=== PATIENT | female | born 1975 | race Caucasian/White ===

== ENCOUNTER → 2020-06-24 14:18 | Outpatient (BNVA) | payer BC, SELFPAY | PROVIDERS: Visit Provider Internal Medicine Gastroenterology | DX: Z76.89 Persons encountering health services in other specified circumstances (principal) ==

== ENCOUNTER → 2020-10-01 13:31 | Outpatient (BNVA) | payer BC, SELFPAY | PROVIDERS: PCP Internal Medicine; Visit Provider Internal Medicine Gastroenterology ==

== ENCOUNTER 2022-07-31 10:25 | Outpatient (REF) | payer BC, SELFPAY ==
[2022-07-31 11:55] LABS: MANUAL DIFF FLAG NO
[2022-07-31 12:06] LABS: Basophils Percent Auto 0.6 % (0-2); Hematocrit 39.5 % (37.0-47.0); Hemoglobin 13.4 g/dl (12.0-16.0); Imm Gran Abs Auto 0.01 X10*3/uL (0.00-0.03); Imm Gran Pct Auto 0.2 % (0.0-0.4); Lymphocytes Absolute Auto 1.4 X10*3/uL (1.2-4.9); Lymphocytes Percent Auto 26.6 % (20-40); Mean Corpuscular HGB Conc 33.9 g/dl (31.0-35.0); Mean Corpuscular Hemoglobin 29.4 pg (27.0-33.0); Mean Corpuscular Volume 86.6 fL (80.0-98.0); Mean Platelet Volume 10.1 fL (9.4-12.3); Monocytes Absolute Auto 0.5 X10*3/uL (0.1-1.2); Monocytes Percent Auto 9.3 % (2-11); Neutrophils Absolute Auto 3.4 x10*3/uL (2.0-8.3); Neutrophils Percent Auto 63.3 % (45-73); Platelet Count 287 X10*3/uL (160-400); Red Blood Count 4.56 X10*6/uL (4.20-5.50); Red Cell Distribution Width 12.3 % (11.0-16.0); White Blood Count 5.4 X10*3/uL (4.8-10.8)
[2022-07-31 12:35] LABS: Alanine Aminotransferase 13 U/L (0-31); Albumin Level 4.3 g/dL (3.5-5.0); Alkaline Phosphatase 55 U/L (39-117); Anion Gap 12 (12-20); Aspartate Amino Transferase 16 U/L (5-31); Bilirubin Total 0.6 mg/dL (0.0-1.0); Blood Urea Nitrogen 15 mg/dL (9-16); C Reactive Protein < 0.10 mg/dL (< or = 0.50); Calcium 9.4 mg/dL (8.4-10.2); Carbon Dioxide 27 mmol/L (22-29); Chloride 103 mmol/L (96-108); Estimated Glomerular Filt Rate > 60; Glucose Random 90 mg/dL (60-115); Magnesium 2.1 mg/dL (1.6-2.6); Phosphorus 4.3 mg/dL (2.7-4.5); Potassium 4.4 mmol/L (3.3-5.1); Sodium 138 mmol/L (135-145); Total Protein 6.9 g/dL (6.5-8.0)
[2022-07-31 13:04] LABS: Ferritin 19 ng/mL (10-250); Folate 17.9 ng/mL (> or = 4.0); Vitamin B12 357 pg/mL (200-900); Vitamin D 25-OH Total 50.5 ng/mL (>30)
[2022-08-01 14:23] LABS: IgA 169 mg/dL (47-310); IgG 1091 mg/dL (600-1640); IgM 102 mg/dL (50-300)
[2022-08-03 14:48] LABS: Immunoglobulin G Subclass 1 506 mg/dL (382-929); Immunoglobulin G Subclass 2 469 mg/dL (241-700); Immunoglobulin G Subclass 3 43 mg/dL (22-178); Immunoglobulin G Subclass 4 26.3 mg/dL (4-86); Immunoglobulin G Total 1117 mg/dL (600-1640)
[2022-08-04 15:43] LABS: Zinc 71 mcg/dL (60-130)
[2022-08-04 18:28] LABS: Vitamin C 1.1 mg/dL (0.3-2.7)
[2022-08-05 17:08] LABS: Alpha-Tocopherol 23.8 mg/L (5.7-19.9); Beta-Gamma Tocopherol <1.0 mg/L (<=4.3); Vitamin A 55 mcg/dL (38-98)
[2022-08-05 18:39] LABS: Vitamin K1 >2500 pg/mL (130-1500)
[2022-08-05 19:24] LABS: Vitamin B5 (Pantothenic Acid) 104 ng/mL (<275)
[2022-08-05 21:34] LABS: Nicotinamide <20 ng/mL; Vit B3 - Nicotinic Acid <20 ng/mL
[2022-08-05 22:43] LABS: Transglutaminase Ab IgG <1.0 U/mL; Transglutaminase IgA <1.0 U/mL
[2022-08-06 16:34] LABS: Vitamin B6 45.2 ng/mL (2.1-21.7)
[2022-08-07 17:03] LABS: Histamine Plasma 6.1 ng/mL (< OR = 1.8)
[2022-08-10 02:10] LABS: Vitamin B1 32 nmol/L (8-30)
== END 2022-07-31 10:26 | disposition home or self-care (01) ==
LOC: HO.LAB 10:25
PROVIDERS: Visit Provider Internal Medicine Gastroenterology
DX: R10.33 Periumbilical pain (principal); K86.89 Other specified diseases of pancreas; K90.9 Intestinal malabsorption, unspecified; G89.29 Other chronic pain; K75.81 Nonalcoholic steatohepatitis (NASH); R19.7 Diarrhea, unspecified
CPT/HCPCS: 36415; 80053; 82180; 82306; 82607; 82728; 82746; 82784; 83088; 83520; 83735; 84100; 84207; 84425; 84446; 84590; 84591; 84597; 84630; 85025; 86003; 86140; 86364

== ENCOUNTER 2023-02-05 11:19 | Outpatient (AMB) | payer BC, SELFPAY ==
--- NOTE | 2023-02-05 11:19 | A.OFFVIS_ITS ---
Intake Intake Visit Reasons: 6 month follow up Intake Note: Adriana presents as a video today. CC: A week and a half or so ago she feels like she had a flare up from her panctreatisis. She would like to talk about it today with you. Allergies loratadine [From Claritin] Allergy (Mild, Verified 02/05/23 11:19) Abdominal Pain Penicillins Allergy (Mild, Verified 02/05/23 11:19) Abdominal Pain pentazocine [From Talwin] Allergy (Mild, Verified 02/05/23 11:19) unknown HPI 6 month follow up HPI Details 47 yr old f w hx of back pain and sinus issues being seen for f/u Last seen 09/2020 RECAP: She had alternating levels of lower abdominal pain, usu on left side, has been to ED and been told she has diverticulosis waves of nausea, assoc with fatigue, energy so low, can;t get out of bed she has altered bowel habit, was going everyday now going every few days stool is oily, greasy, stinky, she has to push a lot issues with hemorrhoids, and had hemorrhoidectomy no blood in stool, stool can look dark brown this was noticed 1.5 yr ago assoc with distention, and bloating she eats healthy, keeps fit, avoids fried foods feels sx getting worse with time but last month maybe not as bad uses cannabis oil sometimes no hives she does have mental fogginess, off and on for years since post bleeding appetite is normal most of the time weight is stable, joint pains, in knees, hands, and spine--no swelling, stiffness worse in the morning she has had imaging of spine due to spinal fracture never been checked for osteoporosis still has periods no chest pain, SOB due to mold allergies, ?had covid 1 month ago although tested neg no mouth ulcers 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 HIV has been negative no bad habits, no drug or alcohol use she had EGD/colonoscopy:, polyp removed serrated type, and hemorrhoids noted, no h pylori MRI pancreas: 08/2020--normal INTERIM: reviewed labs with her, Zn low normal, RAST neg migraines little better now, having menopause, going thru hot flashes, memory problems she has issues with bloating, she does have to strain and put a lot of pressure to empty stool she does not feel incomplete after evacuation she is already efexor she is still taking PPI and creon she is still taking enzyme supplements no diarrhea EXAM: GENERAL: Relaxed, good color, breathing normally Assessment & Plan 1/ Steatorrhea with bloating and distention, ?SIBO but didn't really respond to rifaximin, elastase normal, MRe nml with neg IBD and nml pancreas. 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 ? PFSH Surgical History History of History of colonoscopy Hx of dilation and curettage Hx of endoscopy Family History Father Family history of high blood pressure History of bone cancer Hx of heat stroke Mother Family history of high blood pressure Social History Alcohol intake: current Alcohol intake frequency: a few times a month Alcohol type: wine Substance Use Type: Marijuana Assessment & Plan Assessment & Plan (1) Pancreatic insufficiency: Code(s): K86.89 - Other specified diseases of pancreas (2) Idiopathic steatorrhea: Code(s): K90.9 - Intestinal malabsorption, unspecified (3) Steatorrhea: Code(s): K90.9 - Intestinal malabsorption, unspecified (4) Abdominal bloating: Code(s): R14.0 - Abdominal distension (gaseous) Medications: New rifaximin 550 mg PO TID 2 weeks 42 tabs 0RF Coding Level of Care Code Est Pt Level 3 (27408) Diagnoses Pancreatic insufficiency K86.89 Idiopathic steatorrhea K90.9 Steatorrhea K90.9 Abdominal bloating R14.0
--- OUTSIDE RECORDS SUMMARY | 2023-02-05 11:21 | XMS_ITS ---
Author Name Cindy Lou Address [address] [place], [place] [id number] Organization [facility] Address [address] [place], [place] [id number] Care Team Providers Care Perfumer Name Role Phone Cindy Lou Unavailable [phone] PROBLEMS Type Condition ICD9-CM Code OKE27-YO Code Onset Dates Condition Status SNOMED Code Problem Migraine without aura, intractable, without status migrainosus G43.019 Active 700585102 Problem Cervicalgia M54.2 Active 57788229 Problem Migraine, unspecified, intractable, without status migrainosus G43.919 Active 490035303 ALLERGIES Substance Reaction Event Type Date Status Penicillin Unknown Drug Allergy May, Active Talwin Unknown Drug Allergy May, Active Levaquin Unknown Drug Allergy May, Active ENCOUNTERS Encounter Location Date Diagnosis [facility] [address] [id number] Jun, [facility] [address] [id number] Jun, [facility] [address] [id number] Jun, [facility] [address] [id number] May, [facility] [address] [id number] May, Migraine without aura, intractable, without status migrainosus G43.019 [facility] [address] [id number] May, [facility] [address] [id number] May, [facility] [address] [id number] Apr, Migraine without aura, intractable, without status migrainosus G43.019 and Cervicalgia M54.[address] [facility] [address] [id number] 2022 IMMUNIZATIONS No Known Immunizations SOCIAL HISTORY Never Assessed REASON FOR REFERRAL FUNCTIONAL STATUS PLAN OF CARE Activity Details VITAL SIGNS Heart Rate 64 2022-05-19 Height 70 in 2022-06-15 Height 70 in 2022-05-19 Weight 158 lbs 2022-05-19 BMI 22.67 kg/m2 2022-05-19 Blood pressure systolic 114 Blood pressure diastolic 78 2022-04 MEDICATIONS Medication Instructions Dosage Frequency Start Date End Date Duration Status Butalbital-APAP -Caffeine 50-325-40 MG Orally every 4 hrs 1 capsule as needed 4h Not-Taki ng ZOLMitriptan 2.5 MG Orally Once a day 1 tablet 24h 1 day(s) Not-Taki ng Nurtec 75 MG DISSOLVE ONE ORAL DISINTEGRATING TABLET IN MOUTH AT THE FIRST ONSET OF MIGRAINE ONCE A DAY NEEDED. MAX 1 TABLET PER 24 HOURS 30 Active Propranolol HCl ER 80 MG Orally Once a day 1 capsule 24h 90 days Active Creon 45103-02714 UNIT Orally up to 6/day as directed Active Venlafaxine HCl 75 MG Orally Once a day 1 tablet with food 24h Active SUMAtriptan 20 MG/ACT Nasally Once a day 1 spray at onset of headache in one nostril may repeat after 2 hours as needed 24h 1 day(s) Not-Taki ng PROCEDURES No Known procedures RESULTS No Results REASON FOR VISIT samples, ? abt her nurtec script, nurtec, EPA form, migraine - blurred vision , [place] - Nurtec Insurance Providers Health Insurance Type Health Plan Insurance Address Health Plan Insurance Phone Health Plan Insurance Name Health Plan Coverage Dates Member ID Patient Relationship to Subscriber Patient Address Patient Phone Patient Name Patient Date of Subscriber ID Subscriber Name Subscriber Date of Group No [facility] [address] [facility] [id number] [facility] self Zelda olsen [place] [id number]
== END 2023-02-05 12:39 | disposition home or self-care (01) ==
LOC: HO.HGI 11:19
PROVIDERS: Visit Provider Internal Medicine Gastroenterology
DX: K86.89 Other specified diseases of pancreas (principal); K90.9 Intestinal malabsorption, unspecified; R14.0 Abdominal distension (gaseous)
CPT/HCPCS: 99213

== ENCOUNTER → 2023-02-05 11:19 | Outpatient (BNVA) | payer BC, SELFPAY | PROVIDERS: Visit Provider Internal Medicine Gastroenterology ==

== ENCOUNTER 2023-08-06 11:10 | Outpatient (AMB) | payer OTHER, SELFPAY ==
--- NOTE | 2023-08-06 11:18 | MHC.OFFVIS ---
Intake Vital Signs 08/06/23 11:20 Height 5 ft 10 in Weight 162 lb BMI 23.2 BP 123/77 Blood Pressure Location Lt brachial Position Sitting Pulse 77 Intake Visit Reasons: 6 mnth folllow uo Intake Note: Patient follow up for Patient cc: Nauseas, abdominal pain with bloating, constipation on and off, max mucous and flame. Division Traffic Superintendent Required: No Accompanied by: Self / Same As Patient Allergies loratadine [From Claritin] Allergy (Mild, Verified 08/06/23 11:17) Abdominal Pain Penicillins Allergy (Mild, Verified 08/06/23 11:17) Abdominal Pain pentazocine [From Talwin] Allergy (Mild, Verified 08/06/23 11:17) unknown HPI 6 mnth folllow uo HPI Details 48 yr old f w hx of back pain and sinus issues being seen for f/u RECAP: She had alternating levels of lower abdominal pain, usu on left side, has been to ED and been told she has diverticulosis waves of nausea, assoc with fatigue, energy so low, can;t get out of bed she has altered bowel habit, was going everyday now going every few days stool is oily, greasy, stinky, she has to push a lot issues with hemorrhoids, and had hemorrhoidectomy no blood in stool, stool can look dark brown this was noticed 1.5 yr ago assoc with distention, and bloating she eats healthy, keeps fit, avoids fried foods feels sx getting worse with time but last month maybe not as bad uses cannabis oil sometimes no hives she does have mental fogginess, off and on for years since post bleeding appetite is normal most of the time weight is stable, joint pains, in knees, hands, and spine--no swelling, stiffness worse in the morning she has had imaging of spine due to spinal fracture never been checked for osteoporosis still has periods no chest pain, SOB due to mold allergies, ?had covid 1 month ago although tested neg no mouth ulcers 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 HIV has been negative no bad habits, no drug or alcohol use she had EGD/colonoscopy:, polyp removed serrated type, and hemorrhoids noted, no h pylori MRI pancreas: 08/2020--normal INTERIM: she is 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 VITAL SIGNS:see workflow HEENT: Nonicteric sclerae, PERRLA, EOMI. Oropharynx clear. Moist mucous membranes. Conjunctivae appear well perfused. No thyroid mass. CHEST: Chest wall is nontender. HEART: Regular rate and rhythm without murmurs. LUNGS: Clear to auscultation bilaterally. ABDOMEN: Soft, positive bowel sounds, nontender, no organomegaly.no flank tenderness SKIN: No rash, no excessive bruising, petechiae, or purpura. NEUROLOGIC: Cranial nerves II-XII intact without motor/sensory deficit. Assessment & Plan 1/ Steatorrhea with bloating and distention, ?SIBO but didn't really respond to rifaximin, elastase normal, MRe nml with neg IBD and nml pancreas. COuld still have mild early panc insuff vs functional pain and GI syndrome 2/ possible abdomino phrenic dyssenergia vs pelvic floor dysfunction or IBS- C 3/ menopausal --maybe contributing to GI sx, being investigated for uterine abn and awaiting hysteroscopy PLAN: 1/ cont creon , and PPI, add trental, discussed cromolyn for mucous, she will consider 2/ she is due colonoscopy for hx of polyps 3/ MR defecography to r/o anatomical and pelvic floor disorders 4/ From GI point there is no reason why she can not have a hysteroscopy or any other electrical engineering teacher procedure [facility] Surgical History Hx of dilation and curettage History of Hx of endoscopy History of colonoscopy Family History Father Family history of high blood pressure History of bone cancer Hx of heat stroke Mother Family history of high blood pressure Social History Alcohol intake: current Alcohol intake frequency: a few times a month Alcohol type: wine Substance Use Type: Marijuana Physical Exam Vital Signs: Last Vital Signs Pulse 77 08/06/23 11:20 BP 123/77 08/06/23 11:20 BMI result Body Mass Index 23.2 Assessment & Plan Assessment & Plan (1) Pelvic floor dysfunction: Code(s): M62.89 - Other specified disorders of muscle Plan: Assessment & Plan 1/ Steatorrhea with bloating and distention, ?SIBO but didn't really respond to rifaximin, elastase normal, MRe nml with neg IBD and nml pancreas. COuld still have mild early panc insuff vs functional pain and GI syndrome 2/ possible abdomino phrenic dyssenergia vs pelvic floor dysfunction or IBS- C 3/ menopausal --maybe contributing to GI sx, being investigated for uterine abn and awaiting hysteroscopy PLAN: 1/ cont creon , and PPI, add trental, discussed cromolyn for mucous, she will consider 2/ she is due colonoscopy for hx of polyps 3/ MR defecography to r/o anatomical and pelvic floor disorders 4/ From GI point there is no reason why she can not have a hysteroscopy or any other electrical engineering teacher porcedure Orders: Orders MR pelvis w con Today M62.89 - Other specified disorders of muscle Medications: New pentoxifylline ER must administer with a meal/food 400 mg PO TID 90 tabs 2RF sodium,potassium,mag sulfates 17.5-3.13-1.6 gram (Suprep Bowel Prep Kit) DILUTE; drink 1/2 at 6-8 pm and half at 11 PM- 1AM 354 mL 0RF Discontinued rifaximin Discontinued Reason: Doctor's Order 550 mg PO TID 2 weeks 42 tabs 0RF metronidazole Discontinued Reason: Doctor's Order 500 mg PO TID 14 days 42 tabs 0RF Coding Level of Care Code Est Pt Level 4 (25394) Diagnoses Pelvic floor dysfunction M62.89
[2023-08-06 11:20] VITALS: BP 123/77; PULSE 77; BMI 23.2
== END 2023-08-06 12:05 | disposition home or self-care (01) ==
PROVIDERS: Visit Provider Internal Medicine Gastroenterology
DX: M62.89 Other specified disorders of muscle (principal)
CPT/HCPCS: 99214

== ENCOUNTER → 2023-08-06 11:10 | Outpatient (BNVA) | payer OTHER, SELFPAY | PROVIDERS: Visit Provider Internal Medicine Gastroenterology ==

== ENCOUNTER 2025-05-07 09:18 | Outpatient (AMB) | payer BC, SELFPAY ==
--- OUTSIDE RECORDS SUMMARY | 2024-10-09 04:00 | XMS_ITS ---
Author Organization [facility] Address [address] [place] [id number] Care Team Providers Care Casino Games Dealer Name Role Phone Ginny Hong Primary Care Provider U Durga Phillip Unavailable [phone] Hope Oconnor Unavailable [phone] REASON FOR VISIT botox Encounters Encounter Location Date Provider Diagnosis [facility] [address] [place] [phone] 10/09/2024 Hope Oconnor Plan Of Treatment Next Appt Details Provider Name:Durga Velazco on, 07/26/2025 03:00:00 PM, [address] [place] [address], [phone], Progress Notes * JEB DHILLON RDOB:[birth year] (50 yo F)Acc No.[id number]:10/09/2024 INJECTIONS Patient: JEB DAO Provider: Homar Oconnor NP :1975 A ge:49 Y S ex:Female Date:10/09/2024 Address:[address] [place] [address] Pcp:JOSH Nava Structured Data:verjeff schafer jonah : [birth year]/19/[birth year]22 Subjective: * Chief Complaints: * 1 . Botox. * Medical History: Objective: * Vitals: Assessment: Plan: * Treatment: * Images: * Electronic signature of Tanika Oconnor NP on 05/07/2025 at 10:10 AM EST Sign off status: Pending * Provider: Homar Oconnor NP Date: 0 10/09/2024 Generated for Alanis lin/Emilee/Rasta on: 1 07/07/2024 10:10 AM EST
--- OUTSIDE RECORDS SUMMARY | 2025-01-08 08:00 | XMS_ITS ---
Author Organization [facility] Address [address] [place] [phone] Care Team Providers Care Hospital Insurance Representative Name Role Phone Ginny Hong Primary Care Provider U Durga Phillip Unavailable [phone] Hope Oconnor Unavailable [phone] REASON FOR VISIT botox- migraines Encounters Encounter Location Date Provider Diagnosis [facility] [address] [phone] 01/08/2025 Hope Oconnor Plan Of Treatment Next Appt Details Provider Name:Durga Velazco on, 07/26/2025 03:00:00 PM, [address] [place] [address], [id number], Progress Notes * JEB DHILLON RDOB:[birth year] (50 yo F)Acc No.[id number]:01/08/2025 INJECTIONS Patient: JEB DAO Provider: Homar Oconnor NP :1975 A ge:49 Y S ex:Female Date:01/08/2025 Address:[address] [place], [place] [id number] Pcp:JOSH Nava Structured Data:verifed hanh jonah : 05/19/[birth year]22 Subjective: * Chief Complaints: * 1 . Botox- migraines. * Medical History: Objective: * Vitals: Assessment: Plan: * Treatment: * Images: * Electronic signature of Tanika Oconnor NP on 05/07/2025 at 10:07 AM EST Sign off status: Pending * Provider: Homar Oconnor NP Date: 0 01/08/2025 Generated for Alanis lin/Emilee/Rasta on: 1 07/07/2024 10:07 AM EST
--- OUTSIDE RECORDS SUMMARY | 2025-01-12 04:45 | XMS_ITS ---
Author Organization [facility] Address [address] [place], [place] [phone] Care Team Providers Care Structural Steel Trades Worker Name Role Phone Ginny Hong Primary Care Provider U Durga Phillip Unavailable [phone] REASON FOR VISIT BOTOX Encounters Encounter Location Date Provider Diagnosis [facility] [address] [place], [place] [phone] 01/12/2025 Durga Rutherford Plan Of Treatment Next Appt Details Provider Name:Durga Velazco on, 07/26/2025 03:00:00 PM, [address] [place] [address], [phone], Progress Notes * JEB DHILLON RDOB:[birth year] (50 yo F)Acc No.[id number]:01/12/2025 INJECTIONS Patient: ÁNGELA DAOTIFFANIE Cook Provider: Joey Rutherford M.D. :1975 A ge:49 Y S ex:Female Date:01/12/2025 Address:[address] [place] [address] Pcp:JOSH Nava Structured Data:rich laureanoce : [birth year]/19/20[birth year] Subjective: * Chief Complaints: * Medical History: Objective: Assessment: Plan: * Images: * Electronic signature of Jeff Rutherford MD on 05/07/2025 at 10:09 AM EST Sign off status: Pending * Provider: Joey Rutherford M.D. Date: 0 01/12/2025 Generated for Alanis lin/Emilee/Rasta on: 1 07/07/2024 10:09 AM EST
--- OUTSIDE RECORDS SUMMARY | 2025-04-19 10:45 | XMS_ITS ---
Author Organization [facility] Address [address] [place], [place] [phone] Care Team Providers Care Fish Seiner Name Role Phone Ginny Hong Primary Care Provider U Durga Phillip Unavailable [phone] REASON FOR VISIT 12 WK Encounters Encounter Location Date Provider Diagnosis [facility] [address] [place], [place] [phone] 04/19/2025 Durga Rutherford Plan Of Treatment Next Appt Details Provider Name:Durga Velazco on, 07/26/2025 03:00:00 PM, [address] [place] [address], [phone], Progress Notes * JEB DHILLON RDOB:[birth year] (50 yo F)Acc No.[id number]:04/19/2025 INJECTIONS Patient: JEB DAO Joey Provider: Joey Rutherford M.D. :1975 A ge:50 Y S ex:Female Date:04/19/2025 Address:[address] [place] [address] Pcp:JOSH Nava Structured Data:rich laureanoce : 05/19/2022 Subjective: * Chief Complaints: * Medical History: Objective: Assessment: Plan: * Images: * Electronic signature of Jeff Rutherford MD on 05/07/2025 at 10:07 AM EST Sign off status: Pending * Provider: Joey Rutherford M.D. Date: Generated for Alanis lin/Emilee/Rasta on: 07/07/2024 10:07 AM EST
--- OUTSIDE RECORDS SUMMARY | 2025-04-25 06:15 | XMS_ITS ---
Author Organization [facility] Address [address] [place], [place] [phone] Care Team Providers Care Filament Welder Name Role Phone Ginny Hong Primary Care Provider U Durga Phillip Unavailable [phone] REASON FOR VISIT 12 WK Encounters Encounter Location Date Provider Diagnosis [facility] [address] [place], [place] [phone] 04/25/2025 Durga Rutherford Plan Of Treatment Next Appt Details Provider Name:Durga Velazco on, 07/26/2025 03:00:00 PM, [address] [place] [address], [phone], Progress Notes * JEB DHILLON RDOB:[birth year] (50 yo F)Acc No.[id number]:04/25/2025 INJECTIONS Patient: JEB DAO Joey Provider: Joey Rutherford M.D. :1975 A ge:50 Y S ex:Female Date:04/25/2025 Address:[address] [place] [address] Pcp:JOSH Nava Structured Data:rich laureanoce : [birth year]/19/2022 Subjective: * Chief Complaints: * Medical History: Objective: Assessment: Plan: * Images: * Electronic signature of Jeff Rutherford MD on 05/07/2025 at 10:09 AM EST Sign off status: Pending * Provider: Joey Rutherford M.D. Date: Generated for Alanis lin/Emilee/Rasta on: 07/07/2024 10:09 AM EST
--- OUTSIDE RECORDS SUMMARY | 2025-05-03 10:15 | XMS_ITS ---
Author Organization [facility] Address [address] [place], [place] [id number] Care Team Providers Care Chief Technician X Ray Name Role Phone Pranay Garcia Ginny Primary Care Provider U Durga Phillip Unavailable [phone] REASON FOR VISIT Botox for chronic migraine Medications Medication SIG (Take, Route, Frequency, Duration) Notes Start Date End Date Status Creon 29601-49280 UNIT as directed Orall y up to 6/day Active Venlafaxine HCl ER 37.5 MG Oral; Duration: 30 Days Active Propranolol HCl ER 120 MG 1 capsule Orally Once a day; Duration: 90 days Every night Active traZODone HCl 50 MG TAKE 1 TABLET BY JORY TH AT BEDTIME NEEDED Oral; Duration: 30 Days Active Pantoprazole Sodium 20 MG Oral; Duration: 30 Days Active Eli Allergy 180 MG 1 tablet Swallow whole with water; do not take with fruit juices. Orally Once a day Active Multivitamin - 1 tablet Orally Once a day Active Botox 200 UNIT 155 UNITS Injection q 90 days; Duration: 90 days Active Nurtec 75 MG 1 tablet on the tong ue and allow to dissolve Orally every 48 hours PRN; Duration: 30 days PRN Active Encounters Encounter Location Date Provider Diagnosis [facility] [address] [place] [phone] 05/03/2025 Durga Rutherford Chronic migraine without aura, not intractable, with status migrainosus G43.701 Assessments Encounter Date Diagnosis (ICD Code) Assessment Notes Treatment Notes Treatment Clinical Notes Section Notes 05/03/2025 Chronic migraine without aura, not intractable, with status migrainosus (ICD-10 - G43.701) Plan Of Treatment Medication Medication Name Sig Start Date Stop Date Notes Botox 200 UNIT 155 UNITS Injection q 90 days; Duration: 90 days Next Appt Details Follow Up: 12 weeks for Boto x, Reason: Provider Name:Durga Velazco on, 07/26/2025 03:00:00 PM, [address] [place] [address], [id number], Progress Notes * DHILLONJEB RDOB:[birth year] (50 yo F)Acc No.[id number]:05/03/2025 INJECTIONS Patient: JEB DAO Provider: Joey Rutherford M.D. :1975 A ge:50 Y S ex:Female Date:05/03/2025 Address:[address] [place], [place] [id number] Pcp:JOSH Nava Structured Data:verjeff schafer jonah : 05/19/2022 Subjective: * Chief Complaints: * B otox for chronic migraine * HPI: F ollow Up: HPI History of chronic migraine has had a good response to Botox treatments This has help reduce neck stiffness and painful headaches. Patient is lapsed in therapy by about two weeks She underwent a hysterectomy two weeks ago r ecovering well from this. Uses Nurtec as needed with good relief of breakthrough headaches. Baseline migraine frequency is greater than 15 headaches per month. Some months she can get 20 headaches per month. With the combination of Botox and Nurtec she is now experiencing fewer than 10 headaches per month No new medications no new medical issues Works from home EXAM no apparent distress well appearing no ptosis face symmetric normal strength in the head flexors and extensors no atrophy of the shoulder muscles ASSESSMENT/PLAN Good response to Botox for migraine prophylaxis. Improvement in quality of life, fewer migraine headaches, fewer missed days at work No side effects. Patient was treated with the migraine protocol. She will return for repeat injections in 12 weeks time. * Medical History: * Surgical History: * Hospitalization/Major Diagno stic Procedure: * Medications: T akingAllegra Allergy 180 MG Tablet 1 tablet Swallow whole with water; do not take with fruit juices. Orally Once a day Multivitamin - Tablet 1 tablet Orally Once a day Propranolol HCl ER 120 MG Capsule Extended Release 24 Hour 1 capsule Orally Once a day , Notes to Pharmacist: Every nightCreon 29482-98350 UNIT Capsule Delayed Release Particles as directed Orally up to 6/day Venlafaxine HCl ER 37.5 MG Capsule Extended Release 24 Hour Oral traZODone HCl 50 MG Tablet TAKE 1 TABLET BY MOUTH AT BEDTIME NEEDED Oral Pantoprazole Sodium 20 MG Tablet Delayed Release Oral Botox 200 UNIT Solution Reconstituted 155 UNITS Injection q 90 days Nurtec 75 MG Tablet Disintegrating 1 tablet on the tongue and allow to dissolve Orally every 48 hours PRN , Notes to Pharmacist: PRNTaking Eli Allergy 180 MG Tablet 1 tablet Swallow whole with water; do not take with fruit juices. Orally Once a day Taking Multivitamin - Tablet 1 tablet Orally Once a day Taking Propranolol HCl ER 120 MG Capsule Extended Release 24 Hour 1 capsule Orally Once a day , Notes to Pharmacist: Every nightTaking Creon 91271-19437 UNIT Capsule Delayed Release Particles as directed Orally up to 6/day Taking Venlafaxine HCl ER 37.5 MG Capsule Extended Release 24 Hour Oral Taking traZODone HCl 50 MG Tablet TAKE 1 TABLET BY MOUTH AT BEDTIME NEEDED Oral Taking Pantoprazole Sodium 20 MG Tablet Delayed Release Oral Taking Botox 200 UNIT Solution Reconstituted 155 UNITS Injection q 90 days Taking Nurtec 75 MG Tablet Disintegrating 1 tablet on the tongue and allow to dissolve Orally every 48 hours PRN , Notes to Pharmacist: PRN Objective: * Vitals: Assessment: * Assessment: 1. C hronic migraine without aura, not intractable, with status migrainosus - G43.701 (Primary)? Plan: * Treatment: * Procedures: B otulinum toxin treatment INDICATIONS: Chronic Migraine. PROCEDURE: Chemodenervation with botulinum toxin. TREATMENT PROCEDURE: The patient was placed in the supine position for treatment of the forehead and temporalis muscles and in the lateral decubitus position for injections to the occipitalis and posterior neck muscles. Each 100 unit vial of Botox was diluted with 2 ml of preservative free sterile normal saline. 30 gauge 1/2 inch needles with a tuberculin syringe were used to inject the following muscles:. . 1. Front Of House Manager- one site bilaterally. 2. Procerus- one site. 3. Frontalis- 2 sites bilaterally. 4. Temporalis- 4 sites bilaterally. 5. Occipitalis- 3 sites bilaterally. 6. Cervical Paraspinals- 2 sites, suboccipital, bilaterally. 7. Trapezius- 3 sites bilaterally over the shoulder portion. . OUTCOME/PLAN: Each site consisted of 5 units of Botox for a total of 155 units. 45 units was discarded as waste. The patient tolerated the procedure well. There were no complications. Follow up will be in 12 weeks' time for repeat injections. LOT# [id number] EXP 03/2027 100 units x 2 vials. * Procedure Codes: 6 4615 CHEMODENERV [facility] [id number] BOTULINUM TOXIN TYPE A PER UNIT, Units: 155.00 J0585 BOTULINUM TOXIN TYPE A PER UNIT, Units: 45.00 , Modifiers: JW * Follow Up: 1 2 weeks for Botox * Images: * Sign off status: Completed true * Provider: Joey Rutherford M.D. Date: 07/03/2024 Generated for Alanis lin/Emilee/Karensmitting on: 07/07/2024 10:06 AM EST
--- OUTSIDE RECORDS SUMMARY | 2025-05-04 05:15 | XMS_ITS ---
Author Organization [facility] Address [address] [place], [place] [id number] Care Team Providers Care Trolley Car Mechanic Name Role Phone Ginny Hong Primary Care Provider U Durga Phillip [phone] Encounters Encounter Location Date Provider Diagnosis [facility] [address] [place], [place] [phone] 05/04/2025 Durga Rutherford Plan Of Treatment Next Appt Details Provider Name:Durga Velazco on, 07/26/2025 03:00:00 PM, [address] [place] [address], [id number], Progress Notes * JEB DHILLON RDOB:[birth year] (50 yo F)Acc No.[id number]:05/04/2025 INJECTIONS Patient: Homar PRATT JEB Cook Provider: Joey Rutherford M.D. :1975 A ge:50 Y S ex:Female Date:05/04/2025 Address:[address] [place], [place] [id number] Pcp:JOSH Nava Structured Data:rich laureanoce : 05/19/2022 Subjective: * Chief Complaints: * Medical History: Objective: Assessment: Plan: * Images: * Electronic signature of Jeff Rutherford MD on 05/07/2025 at 10:09 AM EST Sign off status: Pending * Provider: Joey Rutherford M.D. Date: 07/04/2024 Generated for Alanis lin/Emilee/Rasta on: 07/07/2024 10:09 AM EST
--- NOTE | 2025-05-07 09:19 | MHC.OFFVIS ---
Intake Visit Reasons: discuss having colonoscopy Intake Note: Patient follow up forColonoscopy discussion. Patient cc:abdominal discomfort with bloating and cramping, acid reflux and constipation on and off. Credit Card Associate Required: No Allergies loratadine (From Claritin) Allergy (Mild, Verified 05/07/25 09:19) Abdominal Pain Penicillins Allergy (Mild, Verified 05/07/25 09:19) Abdominal Pain pentazocine (From Talwin) Allergy (Mild, Verified 05/07/25 09:19) unknown HPI HPI discuss having colonoscopy: Details: 50 yr old f w hx of back pain and sinus issues being called for f/u RECAP: She had alternating levels of lower abdominal pain, usu on left side, has been to ED and been told she has diverticulosis waves of nausea, assoc with fatigue, energy so low, can;t get out of bed she has altered bowel habit, was going everyday now going every few days stool is oily, greasy, stinky, she has to push a lot issues with hemorrhoids, and had hemorrhoidectomy no blood in stool, stool can look dark brown this was noticed 1.5 yr ago assoc with distention, and bloating she eats healthy, keeps fit, avoids fried foods feels sx getting worse with time but last month maybe not as bad uses cannabis oil sometimes no hives she does have mental fogginess, off and on for years since post bleeding appetite is normal most of the time weight is stable, joint pains, in knees, hands, and spine--no swelling, stiffness worse in the morning she has had imaging of spine due to spinal fracture never been checked for osteoporosis still has periods no chest pain, SOB due to mold allergies, ?had covid 1 month ago although tested neg no mouth ulcers 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 HIV has been negative no bad habits, no drug or alcohol use she had EGD/colonoscopy:, polyp removed serrated type, and hemorrhoids noted, no h pylori MRI pancreas: 08/2020--normal INTERIM: she had surgery 3 weeks ago -hysterctomy and pelvic floor sling she had diffuse endometriosis, and adenomyosis she might have VwD no major complaints otherwise Assessment & Plan 1/ Hx of colon polyps, recent surgery as above, will hopefully help her chronic GI issues PLAN: 1/repeat colo now with sutab [facility] Surgical History (Updated 05/07/25 @ 09:21 by Deyanira Ramon) Hx of bladder repair surgery Hx of hysterectomy Hx of dilation and curettage History of Hx of endoscopy History of colonoscopy Family History Father Family history of high blood pressure History of bone cancer Hx of heat stroke Mother Family history of high blood pressure Social History Alcohol intake: current Alcohol intake frequency: a few times a month Alcohol type: wine Substance Use Type: Marijuana Telehealth Telehealth Telehealth Platform: Telephone Location of provider rendering services: practice address Location of patient: address on file Patient Identification confirmed using: Name, : Yes Telehealth method: voice only Patient verbally consented to treatment: Yes Patient verbally consented to billing insurance company: Yes Patient informed of any privacy concerns related to visit: Yes Minutes spent on Phone/Video with Pt.: 6 Assessment & Plan Assessment & Plan (1) Abdominal bloating: Code(s): R14.0 - Abdominal distension (gaseous) Category: Medical Plan: as above Medications: New sod sulf-pot chloride-mag sulf 1.479-0.188- 0.225 gram (Sutab) PO PER PKG DIR 24 tabs 0RF Refilled ondansetron 4 mg PO Q8H PRN 7 tabs 0RF nausea and vomiting Coding Level of Care Code Tele Est Pt Level 3 (91151) Diagnoses Abdominal bloating R14.0
--- NOTE | 2025-05-07 09:19 | MHC.OFFVIS ---
Intake Visit Reasons: discuss having colonoscopy Intake Note: Patient follow up for Colonoscopy discussion. Patient cc: abdominal bloating with cramping and also discomfort on and off, acid reflex and constipation on and off. Pallet Sorter Required: No Allergies loratadine (From Claritin) Allergy (Mild, Verified 05/07/25 09:19) Abdominal Pain Penicillins Allergy (Mild, Verified 05/07/25 09:19) Abdominal Pain pentazocine (From Talwin) Allergy (Mild, Verified 05/07/25 09:19) unknown PFSH Surgical History (Updated 05/07/25 @ 09:21 by Deyanira Ramon) Hx of bladder repair surgery Hx of hysterectomy Hx of dilation and curettage History of Hx of endoscopy History of colonoscopy Family History Father Family history of high blood pressure History of bone cancer Hx of heat stroke Mother Family history of high blood pressure Social History Alcohol intake: current Alcohol intake frequency: a few times a month Alcohol type: wine Substance Use Type: Marijuana Coding
--- OUTSIDE RECORDS SUMMARY | 2025-05-07 10:06 | XMS_ITS | Encounter Summary ---
Author Organization [facility] Address [address] [place] [address] Phone Care Team Providers Care Deportation Examiner Name Role Phone Ginny Pires PA-C Unavailable Parent, Gloria Jean MD Primary Care Provider [phone] ParentGloria MD Unavailable [phone] Parent, Gloria Jean MD Unavailable [phone] Makeda Sullivan MD Unavailable Angela Fisher MD Primary Care Provider Encounter Details Date Type Department Care Team (Late st Contact Info) Description 02/05/2023 Procedure Pass [facility] [address] [place] [address] Social History Tobacco Use Types Packs/Day Years Used Date Smoking Tobacco: Never Smokeless Tobacco: Never Alcohol Use Standard Drinks/Week Comments Not Currently 0 (1 standard drink = 0.6 oz pur e alcohol) Education Answer Date Recorded Are you interested in more education? Not on raisa e 10/22/2022 Are you concerned about learning? Not on file 10/22/2022 No 10/22/2022 No 10/22/2022 Digital Access Answer Date Recorded No 11/24/2022 No 11/24/2022 Reliable internet access at home? Not on file 11/24/2022 Device with a working camera? 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 Not on file Not on raisa e documented as of this encounter Plan of Treatment Upcoming Encounters Date Type Department Care Team (Late st Contact Info) Description 02/07/2025 Procedure Pass [facility] [address] [place] [address] 11/06/2025 1:30 PM EDT Appointment [facility] [address] [place] [address] Ginny Pires PA-C [address] [place] [address] [email or web address] 02/08/2026 4:00 PM EDT Office Visit [facility] Primary Care [facility] [address] [place] [address] Ginny Pires PA-C [address] [place] [address] [email or web address] documented as of this encounter Visit Diagnoses Not on filedocumented in this encounter Additional Health Concerns Infection Onset Date Last Indicated Resolved Time CoV-Risk Comment:Per Ambulatory Triage Form 08/05/2023 08/05/202308/16 1:22 AM EST CoV-Exposed Comment:Recent close contact documented in the COVID-19 Amb Triage Form 10/31/2023 11/03/2023 11/21/2023 1:21 AM E DT CoV-Risk Comment:Per Ambulatory Triage Form 11/03/2023 11/03/202311/13 1:21 AM EDT CoV-Risk 02/04/2025 02/04/2025 02/15/2025 1:21 AM EDT Assessment Noted Time PHQ-9 Depression Total Score: 8 06/04/20 4:11 PM EST PHQ-2 Depression Total Score: 0 02/06/20 8:13 AM EDT documented as of this encounter Care Teams Deportation Examiner Relationship Specialty Start Date End [place] [address] [email or web address] PCP - Resident PCP Internal Medicine 11/27/19 ParentGloria MD [address] [place] [address] [email or web address] PCP - General Internal Medicine 03/07/21 03/26/25 Angela Fisher MD [address] [place] [address] [email or web address] PCP - General Internal Medicine 03/27/25 ParentGloria MD [address] [place] [phone] [email or web address] Partners Attributed Provider 06/06/22 11/05/23 ParentGloria MD [address] [place] [address] [email or web address] Insurance Assigned Provider 03/06/23 04/03/23 Makeda Sullivan MD [address] [place] [phone] [email or web address] Insurance Assigned Provider 04/03/23 09/04/23 documented as of this encounter Additional Source Comments The information contained in this document represents components of the legal health record. It is not the complete legal health record.[facility]
--- OUTSIDE RECORDS SUMMARY | 2025-05-07 10:07 | XMS_ITS | Encounter Summary ---
Author Organization [facility] Address [address] [place] [address] Phone Care Team Providers Care Tool Engine Lathe Set Up Operator Name Role Phone Ginny Pires PA-C Unavailable [phone] Parent, Gloria Jean MD Primary Care Provider [phone] ParentGloria MD Unavailable [phone] ParentGloria MD Unavailable [phone] Makeda Sullivan MD Unavailable [phone] Angela Fisher MD Primary Care Provider [phone] Encounter Details Date Type Department Care Team (Late st Contact Info) Description 05/07/2021 Transcribe Orders [facility] EKG [address] [place] [address] Parent, Gloria Jean MD [address] [place] [address] [email or web address] Palpitation Social History Tobacco Use Types Packs/Day Years Used Date Smoking Tobacco: Never Smokeless Tobacco: Never Alcohol Use Standard Drinks/Week Comments Not Currently 0 (1 standard drink = 0.6 oz pur e alcohol) Comments No Sex and Gender Information Value Date Recorded Sex Assigned at Female 02/17/2019 10:06 AM EDT Legal Sex Female 12:12 PM EDT Gender Identity Female 02/17/2019 10:06 AM EDT Sexual Orientation Straight 02/17/2019 10 :06 AM EDT 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 Not on file No t on file documented as of this encounter Plan of Treatment Upcoming Encounters Date Type Department Care Team (Late st Contact Info) Description 02/07/2025 Procedure Pass [facility] [address] [place] [address] 11/06/2025 1:30 PM EDT Appointment [facility] [address] [place] [address] Ginny Pires PA-C [address] [place] [address] [email or web address] 02/08/2026 4:00 PM EDT Office Visit [facility] Primary Care [facility] [address] [place] [address] Ginny Piers PA-C [address] [place] [address] [email or web address] documented as of this encounter Procedures Procedure Name Priority Date/Time Associated Diagnosis Comments ECG 12-LEAD Routine 05/07/2021 2:59 PM EST Palpitation documented in this encounter Results * ECG 12-LEAD (05/07/2021 2:59 PM EST) Ventricular Rate EKG/MIN 70 BPM [facility] Atrial Rate 70 BPM [facility] SC Interval 128 ms [facility] QRS Duration 86 ms [facility] QT Interval 384 ms [facility] QTC Interval 414 ms [facility] P [place] 43 degrees [facility] R Wave [place] 45 degrees [facility] T Wave [place] 35 degrees [facility] 05/07/2021 2:59 PM EST Narrative [facility] - 05/07/2021 8:12 PM EST Normal sinus rhythm Normal ECG No previous ECGs available Ginny Pires PA-C ECG ORDERABLES Final Re sult [facility] documented in this encounter Visit Diagnoses Diagnosis Palpitation Palpitations documented in this encounter Additional Health Concerns Infection Onset Date Last Indicated Resolved Time CoV-Exposed Comment:Recent close contact documented in the Travel/Symptom Screening Form 07/01/2021 07/16/2021 1:[address] CoV-Risk 07/01/2021 07/01/2021 07/11/2021 1:23 AM EST CoV-Risk Comment:Per Ambulatory Triage Form 08/05/2023 08/05/202308/16 1:22 AM EST CoV-Exposed Comment:Recent close contact documented in the COVID-19 Amb Triage Form 10/31/2023 11/03/2023 11/21/2023 1:21 AM E DT CoV-Risk Comment:Per Ambulatory Triage Form 11/03/2023 11/03/202311/13 1:21 AM EDT CoV-Risk 02/04/2025 02/04/2025 02/15/2025 1:21 AM EDT Assessment Noted Time PHQ-2 Depression Total Score: 0 05/07/20 21 2:13 PM EST documented as of this encounter Care Teams Tool Engine Lathe Set Up Operator Relationship Specialty Start Date End Date Ginny Pires PA-C [address] [place] [address] PCP - Resident PCP Internal Medicine 11/27/19 Gloria Mullen MD [address] [place] [address] [email or web address] PCP - General Internal Medicine 03/07/21 03/26/25 Angela Fisher MD [address] [address] [email or web address] PCP - General Internal Medicine 03/27/25 Parent, Gloria Jean MD [address] [place] [address] [email or web address] Attributed Provider 06/06/22 11/05/23 Parent, Gloria Jean MD [address] [place] [address] [email or web address] Assigned Provider 03/06/23 04/03/23 Makeda Sullivan MD [address] [place] [address] [email or web address] Insurance Assigned Provider 04/03/23 09/04/23 documented as of this encounter Additional Source Comments The information contained in this document represents components of the legal health record. It is not the complete legal health record.[facility]
--- OUTSIDE RECORDS SUMMARY | 2025-05-07 10:07 | XMS_ITS | Encounter Summary ---
Author Organization [facility] Address [address] [place] [address] Phone Care Team Providers Care Manuscript Editor Name Role Phone Ginny Pires PA-C Unavailable Parent, Gloria Jean MD Primary Care Provider [phone] ParentGloria MD Unavailable [phone] Parent, Gloria Jean MD Unavailable [phone] Makeda Sullivan MD Unavailable Angela Fisher MD Primary Care Provider [phone] Encounter Details Date Type Department Care Team (Late st Contact Info) Description 10/22/2022 Procedure Pass [facility] [address] [place] [address] Social History Tobacco Use Types Packs/Day Years Used Date Smoking Tobacco: Never Smokeless Tobacco: Never Alcohol Use Standard Drinks/Week Comments Not Currently 0 (1 standard drink = 0.6 oz pur e alcohol) Education Answer Date Recorded Are you interested in more education? Not on raisa e 10/22/2022 Are you concerned about learning? 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 Not on file Not on raisa e documented as of this encounter Plan of Treatment Upcoming Encounters Date Type Department Care Team (Late st Contact Info) Description 02/07/2025 Procedure Pass [facility] [address] [place] [address] 11/06/2025 1:30 PM EDT Appointment [facility] [address] [place] [address] Ginny Pires PA-C [address] [place] [address] [email or web address] 02/08/2026 4:00 PM EDT Office Visit [facility] Primary Care [facility] [address] [place] [address] Ginny Pires PA-C [address] [place] [address] [email or web address] documented as of this encounter [...] Time PHQ-9 Depression Total Score: 8 06/04/20 21 4:11 PM EST PHQ-2 Depression Total Score: 0 06/05/20 22 2:08 PM EST documented as of this encounter Care Teams Manuscript Editor Relationship Specialty Start Date End Date [place] [address] [email or web address] PCP - Resident PCP Internal Medicine 11/27/19 Gloria Mullen MD [address] [place] [address] [email or web address] PCP - General Internal Medicine 03/07/21 03/26/25 Angela Fisher MD [address] [place] [address] [email or web address] PCP - General Internal Medicine 03/27/25 ParentGloria MD [address] [place] [address] [email or web address] Partners Attributed Provider 06/06/22 11/05/23 Gloria Mullen MD [address] [place] [address] [email or web address] Assigned Provider 03/06/23 04/03/23 Makeda Sullivan MD [address] [place] [address] [email or web address] Assigned Provider 04/03/23 09/04/23 documented as of this encounter Additional Source Comments The information contained in this document represents components of the legal health record. It is not the complete legal health record.[facility]
--- OUTSIDE RECORDS SUMMARY | 2025-05-07 10:07 | XMS_ITS | Encounter Summary ---
Author Organization [facility] Address [address] [place] [address] Phone Care Team Providers Care Care Administrative Tech Name Role Phone Ginny Pires PA-C Unavailable [phone] Parent, Gloria Jean MD Primary Care Provider [phone] Parent, Gloria Jean MD Unavailable [phone] Parent, Gloria Jean MD Unavailable [phone] Makeda Sullivan MD Unavailable Angela Fisher MD Primary Care Provider [phone] Encounter Details Date Type Department Care Team (Late st Contact Info) Description 05/07/2021 Procedure Pass [facility] EKG [address] [place] [address] Social History Tobacco Use Types Packs/Day Years [...] 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 [address] [place] [address] Ginny Pires PA-C 20 [place] [address] [email or web address] documented as of this encounter [...] Time PHQ-2 Depression Total Score: 0 05/07/20 2:13 PM EST documented as of this encounter Care Teams Care Administrative Tech Relationship Specialty Start Date End Date [place] [address] [email or web address] PCP - Resident PCP Internal Medicine 11/27/19 Gloria Mullen MD [address] [place] [address] [email or web address] PCP - General Internal Medicine 03/07/21 03/26/25 Angela Fisher MD [address] [place] [address] [email or web address] PCP - General Internal Medicine 03/27/25 Gloria Mullen MD [address] [place] [phone] [email or web address] Attributed Provider 06/06/22 11/05/23 ParentGloria MD [address] [place] [address] [email or web address] Insurance Assigned Provider 03/06/23 04/03/23 Makeda Sullivan MD [address] [place] [address] [email or web address] Assigned Provider 04/03/23 09/04/23 documented as of this encounter Additional Source Comments The information contained in this document represents components of the legal health record. It is not the complete legal health record.[facility]
--- OUTSIDE RECORDS SUMMARY | 2025-05-07 10:08 | XMS_ITS | Encounter Summary ---
Author Organization [facility] Address [address] [place] [address] Phone Care Team Providers Care Cloth Boil Off Machine Operator Name Role Phone Ginny Pires PA-C Unavailable [phone] Parent, Gloria Jean MD Primary Care Provider [phone] Parent, Gloria Jean MD Unavailable [phone] Parent, Gloria Jean MD Unavailable [phone] Makeda Sullivan MD Unavailable [phone] Angela Fisher MD Primary Care Provider Encounter Details Date Type Department Care Team (Late st Contact Info) Description 02/05/2022 Procedure Pass [facility] [address] [place] [address] Social History Tobacco Use Types Packs/Day Years [...] 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 Not on file Not on raisa e documented as of this encounter Plan of Treatment Upcoming Encounters Date Type Department Care Team (Late st Contact Info) Description 02/07/2025 Procedure Pass [facility] [address] [place] [address] 11/06/2025 1:30 PM EDT Appointment [facility] [address] [place] [address] Ginny Pires PA-C [address] [place] [address] [email or web address] 02/08/2026 4:00 PM EDT Office Visit [facility] Primary Care [facility] [address] [place] [address] Ginny Pires PA-C [address] [place] [address] [email or web address] documented as of this encounter Visit [...] EST PHQ-2 Depression Total Score: 0 02/06/20 22 8:13 AM EDT documented as of this encounter Care Teams Cloth Boil Off Machine Operator Relationship Specialty Start Date End Date Ginny Pires PA-C [address] [place] [address] [email or web address] PCP - Resident PCP Internal Medicine 11/27/19 ParentGloria MD [address] [place] [address] [email or web address] PCP - General Internal Medicine 03/07/21 03/26/25 Angela Fisher MD [address] [place] [address] [email or web address] PCP - General Internal Medicine 03/27/25 Parent, Gloria Jean MD [address] [place] [address] [email or web address] Attributed Provider 06/06/22 11/05/23 Parent, Gloria Jean MD [address] [place] [address] [email or web address] Assigned Provider 03/06/23 04/03/23 Makeda Sullivan MD [address] [place] [address] [email or web address] Assigned Provider 04/03/23 09/04/23 documented as of this encounter Additional Source Comments The information contained in this document represents components of the legal health record. It is not the complete legal health record.[facility]
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
--- OUTSIDE RECORDS SUMMARY | 2025-05-07 10:08 | XMS_ITS | Encounter Summary ---
Author Organization [facility] Address [address] [place] [address] Phone Care Team Providers Care Lawyer Probate Name Role Phone Ginny Pires PA-C Unavailable Parent, Gloria Jean MD Primary Care Provider [phone] Parent, Gloria Jean MD Unavailable [phone] Parent, Gloria Jean MD Unavailable [phone] Makeda Sullivan MD Unavailable Angela Fisher MD Primary Care Provider Encounter Details Date Type Department Care Team (Late st Contact Info) Description 02/05/2022 Procedure Pass [facility] [address] [place] [address] Social History Tobacco Use Types Packs/Day Years [...] 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 Primary Care [facility] [address] [place] [address] Ginny Pires PA-C 20 [place] [address] [email or web address] documented as of this encounter Visit [...] documented as of this encounter Care Teams Lawyer Probate Relationship Specialty Start Date End Date Ginny Pires PA-C 20 [place] [address] [email or web address] PCP - Resident PCP Internal Medicine 11/27/19 ParentGloria MD [address] [place] [address] [email or web address] PCP - General Internal Medicine 03/07/21 03/26/25 Angela Fisher MD [address] [place] [address] [email or web address] PCP - General Internal Medicine 03/27/25 Parent, Gloria Jean MD [address] [place] [address] [email or web address] Attributed Provider 06/06/22 11/05/23 Parent, Gloria Jean MD [address] [place] [address] [email or web address] Insurance Assigned Provider 03/06/23 04/03/23 Makeda Sullivan MD [address] [place] [address] [email or web address] Insurance Assigned Provider 04/03/23 09/04/23 documented as of this encounter Additional Source Comments The information contained in this document represents components of the legal health record. It is not the complete legal health record.[facility]
--- OUTSIDE RECORDS SUMMARY | 2025-05-07 10:08 | XMS_ITS | Encounter Summary ---
Author Organization [facility] Address [address] [place] [address] Phone Care Team Providers Care Procurement Consultant Name Role Phone Ginny Pires PA-C Unavailable Parent, Gloria Jean MD Primary Care Provider [phone] Parent, Gloria Jean MD Unavailable Parent, Gloria Jean MD Unavailable [phone] Makeda Sullivan MD Unavailable Angela Fisher MD Primary Care Provider Encounter Details Date Type Department Care Team (Late st Contact Info) Description 06/01/2021 Ancillary Orders [facility] Primary Care [facility] [address] [place] [address] Ginny Pires PA-C 20 [place] [address] [email or web address] Palpitation Social History Tobacco Use Types Packs/Day [...] 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 on file No t on file documented as of this encounter Plan of Treatment Upcoming Encounters Date Type Department Care Team (Late st Contact Info) Description 02/07/2025 Procedure Pass [facility] [address] [place] [address] 11/06/2025 1:30 PM EDT Appointment [facility] [address] [place] [address] Ginny Pires PA-C 20 [place] [address] [email or web address] 02/08/2026 4:00 PM EDT Office Visit [facility] Primary Care [facility] [address] [place] [address] Ginny Pires PA-C 20 [place] [address] [email or web address] documented as of this encounter Results * Event Monitor Looping up to 30 Days (05/07/2021 2:44 PM EST) Anatomical Region Laterality Modality Heart Other 05/30/2021 11:5 9 PM EST Narrative 06/15/2021 11:59 PM EST Physician Comments: Indication: Palpitations Predominant rhythm: Sinus 59-157 bpm (avg 80 bpm) Atrial arrhythmias: Rare PACs Ventricular arrhythmias: Rare PVCs Bradyarrhythmias/pauses: None Symptoms: Symptom episodes correlated with sinus rhythm 70s-80s bpm on 6 occ asions, a PAC on 1 occasion, and a PVC on 1 occasion. Impression: Normal. Rare PACs and PVCs. No other significant arrhythmia. Symptoms correlated with sinus rhythm, PAC, and PVC. I personally reviewed the available rhythm strips Signed, Brock Stallworth MD Electronically Reviewed by BROCK STALLWORTH on 06/15/2021 11:57PM (CT). Procedure Note Brock Stallworth MD - 06/16/2021 Physician Comments: Indication: Palpitations Predominant rhythm: Sinus 59-157 bpm (avg 80 bpm) Atrial arrhythmias: Rare PACs Ventricular arrhythmias: Rare PVCs Bradyarrhythmias/pauses: None Symptoms: Symptom episodes correlated with sinus rhythm 70s-80s bpm on 6occ asions, a PAC on 1 occasion, and a PVC on 1 occasion. Impression: Normal. Rare PACs and PVCs. No other significant arrhythmia. Symptoms correlated with sinus rhythm, PAC, and PVC. I personally reviewed the available rhythm strips Brock Browning MD Electronically Reviewed by BROCK STALLWORTH on 06/15/2021 11:57PM (CT). Ginny Pires PA-C [facility] Final Result documented in this encounter Visit Diagnoses Diagnosis Palpitation Palpitations Palpitation Palpitations documented in this encounter Additional [...] documented as of this encounter Care Teams Procurement Consultant Relationship Specialty Start Date End Date Ginny Pires PA-C [address] [place] [address] [email or web address] PCP - Resident PCP Internal Medicine 11/27/19 ParentGloria MD [address] [place] [address] [email or web address] PCP - General Internal Medicine 03/07/21 03/26/25 Angela Fisher MD [address] [place] [address] [email or web address] PCP - General Internal Medicine 03/27/25 Parent, Gloria Jean MD [address] [place] [address] [email or web address] Attributed Provider 06/06/22 11/05/23 Parent, Gloria Jean MD [address] [place] [address] [email or web address] Insurance Assigned Provider 03/06/23 04/03/23 Makeda Sullivan MD [address] [place] [address] [email or web address] Insurance Assigned Provider 04/03/23 09/04/23 documented as of this encounter Additional Source Comments The information contained in this document represents components of the legal health record. It is not the complete legal health record.[facility]
--- OUTSIDE RECORDS SUMMARY | 2025-05-07 10:09 | XMS_ITS | Patient Health Record ---
Author Organization [facility] Address [address] [place], [place] [id number] Care Team Providers Care Audit Partner Name Role Phone Ginny Hong Primary Care Provider U conor Rutherford Durga Unavailable [phone] Cindy Lou Unavailable [phone] Hope Oconnor Unavailable [phone] Allergies Allergen (clinical drug ingredient) Drug/Non Drug Allergy documented on EMR Reaction Allergy Type Onset Date Status Levaquin Unknown Drug Allergy Active sumatriptan SUMAtriptan nausea Drug Allergy Act mendez Talwin Unknown Drug Allergy Active Penicillin Unknown Drug Allergy Active Reason For Referral Reason Chronic myofascial m uscle pain / bilat traps/ rhomboids Diagnosis 1 Cervicalgia (M54.2) Diagnosis 2 Myofascial muscle pa in (M79.18) Referral Organization [facility] Referring Provider First Name Hope Referring Provider Last Name Elvin Referring Provider Speciality Nurse Prac titioner Referred Provider Specialty Physical The rapist Referral Priority Routine Medications Medication SIG (Take, Route, Frequency, Duration) Notes Start Date End Date Status Creon [id number] UNIT as directed Orall y up to 6/day Active Venlafaxine HCl ER 37.5 MG Oral; Duration: 30 Days Active Propranolol HCl ER 120 MG 1 capsule Orally Once a day; Duration: 90 days Every night Active Eli Allergy 180 MG 1 tablet [...] hours PRN; Duration: 30 days PRN Active traZODone HCl 50 MG TAKE 1 TABLET BY JORY TH AT BEDTIME NEEDED Oral; Duration: 30 Days Active Pantoprazole Sodium 20 MG Oral; Duration: 30 Days Active Problems Problem Type SNOMED Code ICD Code Onset Dates Problem Status W/U Status Risk Notes Problem Chronic migraine without aura with status migrainosus (443925881084599 ) Chronic migraine without aura, not intractable, with status migrainosus (G43.701) Active confirmed Problem Refractory migraine (301944893) Migraine, unspecified, intractable, without status migrainosus (G43.919) Active confirmed Problem Cervicalgia (44246960) Cervicalgia (M54.2) Active confirmed Problem Refractory migraine without aura (924907439) Migraine without aura, intractable, without status migrainosus (G43.019) Active confirmed Problem Anxiety (29912746) Anxiety (F41.9) Active confirmed Vital Signs Heart Rate 69 01/25/2025 Temperature 98 degrees Fahrenheit 11/27/2024 Respiratory Rate 15 01/25/2025 Blood pressure diastolic 88 01/25/2025 Height 70 in 01/25/2025 Blood pressure systolic 114 01/25/2025 Weight 172.80 lbs 01/25/2025 BMI 24.79 kg/m2 01/25/2025 Encounters Encounter Location Date Provider Diagnosis [facility] [address] [id number] 05/24/2024 Hope Oconnor Chronic migraine without aura, not intractable, with status migrainosus G43.701 and Myofascial muscle pain M79.[address] [id number] 06/08/2024 Hope Oconnor Cervicalgia M54.2 ; Chronic migraine without aura, not intractable, with status migrainosus G43.701 ; Myofascial muscle pain M79.18 and Migraine without aura, intractable, without status migrainosus G43.[address] [id number] 07/18/2024 Hope Oconnor Chronic migraine without aura, not intractable, with status migrainosus G43.701 ; Cervicalgia M54.2 ; Anxiety F41.9 and Migraine without aura, intractable, without status migrainosus G43.019 [facility] [address] [id number] 08/22/2024 Hope Oconnor Migraine without aura, intractable, without status migrainosus G43.019 ; Chronic migraine without aura, not intractable, with status migrainosus G43.701 ; Myofascial muscle pain M79.18 ; Cervicalgia M54.2 and Anxiety F41.[address] [facility] [address] [id number] 09/21/2024 Hope Oconnor Chronic migraine without aura, not intractable, with status migrainosus G43.701 ; Myofascial muscle pain M79.18 and Cervicalgia M54.2 [facility] [address] [id number] 10/13/2024 Hope Oconnor Chronic migraine without aura, not intractable, with status migrainosus G43.701 ; Cervicalgia M54.2 ; Migraine without aura, intractable, without status migrainosus G43.019 and Anxiety F41.[address] [facility] [address] [id number] 11/27/2024 Hope Oconnor Cervicalgia M54.2 ; Myofascial muscle pain M79.18 ; Chronic migraine without aura, not intractable, with status migrainosus G43.701 and Anxiety F41.[address] [facility] [address] [id number] 01/25/2025 Durga Gainesillon Chronic migraine without aura, not intractable, with status migrainosus G43.[address] [facility] [address] [id number] 05/03/2025 Durga Rutehrford Chronic migraine without aura, not intractable, with status migrainosus G43.[address] [facility] [address] [id number] 05/24/2024 Hope Oconnor [facility] [address] [id number] 05/31/2024 Hope Oconnor [facility] [address] [id number] 06/16/2024 Hope Oconnor Chronic migraine without aura, not intractable, with status migrainosus G43.701 [facility] [address], [place] [id number] 06/16/2024 Hope Oconnor Chronic migraine without aura, not intractable, with status migrainosus G43.701 [facility] [address], [place] [id number] 06/23/2024 Hope Oconnor [facility] [address], [place] [id number] 08/10/2024 Hope Oconnor [facility] [address], [place] [id number] 09/21/2024 Hope Oconnor [facility] [address], [place] [id number] 01/02/2025 Hope Oconnor [facility] [address], [place] [id number] 01/09/2025 Hope Oconnor Chronic migraine without aura, not intractable, with status migrainosus G43.701 [facility] [address], [place] [id number] 01/18/2025 Hope Oconnor [facility] [address], [place] [id number] 03/16/2025 Durga Rutherford [facility] [address], [place] [id number] 05/22/2024 Hope Oconnor [facility] [address], [place] [id number] 05/22/2024 Hope Oconnor [facility] [address], [place] [id number] 05/22/2024 Hope Oconnor [facility] [address], [place] [id number] 05/23/2024 Hope Oconnor [facility] [address], [place] [id number] 06/08/2024 Hope Oconnor [facility] [address], [place] [id number] 07/18/2024 Hope Oconnor [facility] [address], [place] [id number] 03/13/2025 Durga Rutherford Chronic migraine without aura, not intractable, with status migrainosus G43.701 [facility] [address], [place] [id number] 03/26/2025 Durga Rutherford [facility] [address], [place] [id number] 03/26/2025 Hope Rutherford MD [address], [place] [id number] 03/26/2025 Durga Rutherford MD [address] [place] [id number] 03/26/2025 Durga Rutherford Assessments Encounter Date Diagnosis (ICD Code) Assessment Notes Treatment Notes Treatment Clinical Notes Section Notes 08/22/2024 Migraine without aura, intractable, without status migrainosus (ICD-10 - G43.019) 09/21/2024 Chronic migraine without aura, not intractable, with status migrainosus (ICD-10 - G43.701) 08/22/2024 Chronic migraine without aura, not intractable, with status migrainosus (ICD-10 - G43.701) 10/13/2024 Chronic migraine without aura, not intractable, with status migrainosus (ICD-10 - G43.701) IMPROVED - contnue with Botox q 12 weeks Nurtec PRN 10/13/2024 Cervicalgia (ICD-10 - M54.2) repeat TPI as needed for Myofascial pain 11/27/2024 Cervicalgia (ICD-10 - M54.2) 11/27/2024 Myofascial muscle pain (ICD-10 - M79.18) 05/24/2024 Chronic migraine without aura, not intractable, with status migrainosus (ICD-10 - G43.701) Repeat botox 06/08/2024 Chronic migraine without aura, not intractable, with status migrainosus (ICD-10 - G43.701) 06/08/2024 Cervicalgia (ICD-10 - M54.2) 06/16/2024 Chronic migraine without aura, not intractable, with status migrainosus (ICD-10 - G43.701) 06/16/2024 Chronic migraine without aura, not intractable, with status migrainosus (ICD-10 - G43.701) 07/18/2024 Chronic migraine without aura, not intractable, with status migrainosus (ICD-10 - G43.701) IMPROVED - contnue with Botox q 12 weeks Nurtec PRN 07/18/2024 Cervicalgia (ICD-10 - M54.2) repeat TPI as needed hydration/ sleep / stress reduction reviewed medications / and myofascial pain 01/09/2025 Chronic migraine without aura, not intractable, with status migrainosus (ICD-10 - G43.701) 01/25/2025 Chronic migraine without aura, not intractable, with status migrainosus (ICD-10 - G43.701) 03/13/2025 Chronic migraine without aura, not intractable, with status migrainosus (ICD-10 - G43.701) 05/03/2025 Chronic migraine without aura, not intractable, with status migrainosus (ICD-10 - G43.701) 05/24/2024 Myofascial muscle pain (ICD-10 - M79.18) cervical / trapezius muscles may benefit from TPI Ordered IFC/TENS Unit - pt explained as to how this may assist with myalgias and reduce her chronic pain 09/21/2024 Myofascial muscle pain (ICD-10 - M79.18) Continue with intermittent TPI After-care instructions reviewed 11/27/2024 Chronic migraine without aura, not intractable, with status migrainosus (ICD-10 - G43.701) 10/13/2024 Migraine without aura, intractable, without status migrainosus (ICD-10 - G43.019) 06/08/2024 Myofascial muscle pain (ICD-10 - M79.18) Continue with intermittent TPI After-care instructions reviewed 07/18/2024 Anxiety (ICD-10 - F41.9) Reassurance provided with therapeutic listening regarding her symptoms 08/22/2024 Myofascial muscle pain (ICD-10 - M79.18) Continue with intermittent TPI After-care instructions reviewed 09/21/2024 Cervicalgia (ICD-10 - M54.2) Education regarding stress reduction/ preventing increased pain/nonpharm methods for pain control 08/22/2024 Cervicalgia (ICD-10 - M54.2) 10/13/2024 Anxiety (ICD-10 - F41.9) Reassurance provided with therapeutic listening. Stress reduction / work changes 11/27/2024 Anxiety (ICD-10 - F41.9) reassurance provided 06/08/2024 Migraine without aura, intractable, without status migrainosus (ICD-10 - G43.019) 07/18/2024 Migraine without aura, intractable, without status migrainosus (ICD-10 - G43.019) 08/22/2024 Anxiety (ICD-10 - F41.9) 05/24/2024 Other Encounter/ visit includes: - reviewing medical records -medication reconciliation - counseling/educa ting the patient or caregiver - ordering prescriptions, tests /procedures - documenting in the medical record Time spent was approx 10 minutes [ Dictation software used, please excuse grammatical/ typo errors] Total time 24 min 06/08/2024 Other Today's encounter/ visit includes face-face time AND the following: - counseling/educa ting the patient or caregiver -medication reconciliation - reviewing imaging/tests/ lab results and medical notes - ordering prescriptions, tests /procedures - documenting in the medical record TOTAL Time spent was approx 25 minutes [ Dictation software used, please excuse grammatical/ typo errors] 07/18/2024 Other Today's encounter/ visit includes face-face time AND the following: - counseling/educa ting the patient or caregiver -medication reconciliation - reviewing imaging/tests/ lab results and medical notes - ordering prescriptions, tests /procedures - documenting in the medical record TOTAL Time spent was approx 25 minutes [ Dictation software used, please excuse grammatical/ typo errors] 08/22/2024 Other Today's encounter/ visit includes face-face time AND the following: - counseling/educa ting the patient or caregiver -medication reconciliation - reviewing imaging/tests/ lab results and medical notes - ordering prescriptions, tests /procedures - documenting in the medical record TOTAL Time spent was approx 25 minutes [ Dictation software used, please excuse grammatical/ typo errors] 09/21/2024 Other Today's encounter/ visit includes face-face time AND the following: - counseling/educa ting the patient or caregiver -medication reconciliation - reviewing imaging/tests/ lab results and medical notes - ordering prescriptions, tests /procedures - documenting in the medical record TOTAL Time spent was approx 25 minutes [ Dictation software used, please excuse grammatical/ typo errors] 10/13/2024 Other Today's encounter/ visit includes face-face time AND the following: - counseling/educa ting the patient or caregiver -medication reconciliation - reviewing imaging/tests/ lab results and medical notes - ordering prescriptions, tests /procedures - documenting in the medical record TOTAL Time spent was approx 25 minutes [ Dictation software used, please excuse grammatical/ typo errors] 11/27/2024 Other Today's encounter/ visit includes face-face time AND the following: - counseling/educa ting the patient or caregiver -medication reconciliation - reviewing imaging/tests/ lab results and medical notes - ordering prescriptions, tests /procedures - documenting in the medical record TOTAL Time spent was approx 30 minutes including procedure time [ Dictation software used, please excuse grammatical/ typo errors] Plan Of Treatment Next Appt Details Provider Name:Durgajarrett Velazco on, 07/26/2025 03:00:00 PM, [address] [place] [address], [phone], Insurance Providers Payer Name Payer Address Payer Phone Subscriber Number Group Number Insured Name Patient Relationship to Insured Coverage Start Date Coverage End Date [facility] [address] [place] [address] [phone] [id number] JEB DHILLON Self - patient is the insured Medical (General) History Medical History History ICD Code back pain exocrine pancreatic insufficiency hemo cyst Surgical History Surgery Date(Month/Year) c section Hemorrhoidectomy Hospitalization History Reason Date(Month/Year) Two seperate days in the hospital due to cyst 12/2024 Leta Chavez 04/2022 [facility] - migraines 05/10/2022
--- OUTSIDE RECORDS SUMMARY | 2025-05-07 10:09 | XMS_ITS | Encounter Summary ---
Author Organization [facility] Address [address] [place] [address] Phone Care Team Providers Care Hospital Unit Coordinator Name Role Phone Ginny Pires PA-C Unavailable [phone] Parent, Gloria Jean MD Primary Care Provider [phone] Parent, Gloria Jean MD Unavailable [phone] Parent, Gloria Jean MD Unavailable [phone] Makeda Sullivan MD Unavailable Angela Fisher MD Primary Care Provider [phone] Encounter Details Date Type Department Care Team (Late st Contact Info) Description 11/14/2021 Procedure Pass [facility] [address] [place] [address] Social History Tobacco Use Types Packs/Day Years [...] 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 on file No t on file documented as of this encounter Plan of Treatment Upcoming Encounters Date Type Department Care Team (Late st Contact Info) Description 02/07/2025 Procedure Pass [facility] [address] [place] [address] 11/06/2025 1:30 PM EDT Appointment [facility] [address] [place] [address] Ginny Pires PA-C [address] [place] [address] [email or web address] 02/08/2026 4:00 PM EDT Office Visit [facility] Primary Care [facility] [address] [place] [address] Ginny Pires PA-C [address] [place] [address] [email or web address] documented as of this encounter Visit [...] PM EST PHQ-2 Depression Total Score: 0 09/25/19 22 4:45 PM EDT documented as of this encounter Care Teams Hospital Unit Coordinator Relationship Specialty Start Date End Date Ginny Pires PA-C [address] [place] [address] [email or web address] PCP - Resident PCP Internal Medicine 11/27/19 Gloria Mullen MD [address] [place] [address] [email or web address] PCP - General Internal Medicine 03/07/21 03/26/25 Angela Fisher MD [address] [address] [email or web address] PCP - General Internal Medicine 03/27/25 ParentGloria MD [address] [place] [address] [email or web address] Attributed Provider 06/06/22 11/05/23 ParentGloria MD [address] [place] [address] [email or web address] Insurance Assigned Provider 03/06/23 04/03/23 Makeda Sullivan MD [address] [place] [address] [email or web address] Insurance Assigned Provider 04/03/23 09/04/23 documented as of this encounter Additional Source Comments The information contained in this document represents components of the legal health record. It is not the complete legal health record.[facility]
--- OUTSIDE RECORDS SUMMARY | 2025-05-07 10:09 | XMS_ITS | Encounter Summary ---
Author Organization [facility] Address [address] [place] [address] Phone Care Team Providers Care Gas Tender Name Role Phone Ginny Pires PA-C Unavailable [phone] ParentGloria MD Primary Care Provider [phone] Gloria Mullen MD Unavailable [phone] Makeda Sullivan MD Unavailable Angela Fisher MD Primary Care Provider [phone] Encounter Details Date Type Department Care Team (Late st Contact Info) Description 08/12/2023 Procedure Pass BWF Periop 1st floor [address] [place] [address] Social History Tobacco Use Types Packs/Day Years [...] 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 Not on file Not on raisa e documented as of this encounter Plan of Treatment Upcoming Encounters Date Type Department Care Team (Late st Contact Info) Description 02/07/2025 Procedure Pass [facility] [address] [place] [address] 11/06/2025 1:30 PM EDT Appointment [facility] [address] [place] [address] Ginny Pires PA-C 20 [place] [address] [email or web address] 02/08/2026 4:00 PM EDT Office Visit [facility] Primary Care [facility] [address] [place] [address] Ginny Pires PA-C 20 [place] [address] [email or web address] documented as of this encounter [...] PM EST PHQ-2 Depression Total Score: 0 08/10/19 10:55 AM EST documented as of this encounter Care Teams Gas Tender Relationship Specialty Start Date End Date [place] [address] [email or web address] PCP - Resident PCP Internal Medicine 11/27/19 Gloria Mullen MD [address] [place] [address] [email or web address] PCP - General Internal Medicine 03/07/21 03/26/25 Angela Fisher MD [address] [place] [address] [email or web address] PCP - General Internal Medicine 03/27/25 Gloria Mullen MD [address] [place] [address] [email or web address] Attributed Provider 06/06/22 11/05/23 Makeda Sullivan MD [address] [place] [id number] [email or web address] Insurance Assigned Provider 04/03/23 09/04/23 documented as of this encounter Additional Source Comments The information contained in this document represents components of the legal health record. It is not the complete legal health record.[facility]
--- OUTSIDE RECORDS SUMMARY | 2025-05-07 10:09 | XMS_ITS | Data Portability ---
Author Organization [facility] Address [address] [address] Care Team Providers Care Mri Ct Tech Name Role Phone JESSICA GONZALEZ Primary Care Provider Assessment No assessment recorded. Plan of Treatment Reminders Order Date Submit Date Provider Last Modified By Organization Details Last Modified Time Details Appointments None recorded. Lab vitamin B12, serum 2022 023 [facility], [address] [place] [address], [address], 3 03:31:01 ferritin, serum or plasma 2022 023 [facility], [address] [place] [address], [address], 3 03:30:57 jalil-bar r virus (ebv) IgG + IgM panel, serum 2022 023 [facility], [address] [place] [address], [address], 4 07:19:56 vitamin B12, serum 2022 023 DBA_PATCH _40723 [facility], [address] [place] [address], [address], 4 07:20:36 lyme disease igg+igm Ab, serum 2022 023 LINDA In-Office Order, Internal Use Only DO Not Attach Compendium DO Not Attach Compendium, Do Not Delete/merge, [address] 3 15:55:44 vitamin D, 25-hydroxy, total, serum 2022 023 DBA_PATCH _40723 [facility], [address] [place], [address], 4 07:20:11 ferritin, serum or plasma 2022 023 DBA_PATCH _40723 [facility], [address] [place], [address], 4 07:19:16 Referral None recorded. Procedures None recorded. Surgeries None recorded. Imaging None recorded. Medication Orders Vitamin B-12 500 mcg tablet [address] [facility] #[id number], [address], [place], [place], [id number], 3 13:34:01 ferrous sulfate 325 mg (65 mg iron) tablet [address] [facility] #[id number], [address], [place], [place], [id number], 3 13:34:02 propranolol ER 120 mg capsule,24 hr,extended release 2022 023 [facility][id number], [address] [place], [address], 3 13:33:57 propranolol ER 120 mg capsule,24 hr,extended release 2022 023 [facility][id number], [address] [place], [address], 3 16:05:05 Patient TargetsNo targets recorded. Patient InstructionsNo instructions recorded. Reason for Referral None Reported. Results Created Date Observation Date Name Description Value Unit Range Abnormal Flag Note LastModifiedBy Organization Detail LastModifiedTime 12/09/1912/08/2022 IRENA TIN ferritin 13 NG/mL 11-306 normal Not Available [facility] [address] [address], [place], [address] 12/08/2022 17:50:11 12/09/1912/08/2022 VITAM IN B12 vitamin B12 381 pg/mL 232-12 45 normal Not Available [facility] [address] [address], [place], [address] 12/08/2022 17:50:12 12/09/19 23 12/08/2022 VITAM IN D 25 HYDRO XY vitamin D 25 hydroxy 38 NG/mL > or = 30 Not Available [facility] [address] [address], [place], [address] 12/08/2022 17:50:13 12/09/1912/08/2022 LYME DISEA SE SEROL OGY EVAL lyme disease serology eval Negati ve negati ve No detec table antib odies to B.bur gdorf juan daniel. Patie nts in early stage s of infec tion may not produ ce detec table level s of antib abilio. Patie nts with clini gen histo ry and/o r sympt oms sugge stive of Lyme disea se shoul d be retes earline in 2-4 weeks . Not Available [facility] [address] [address], [place], [address] 12/08/2022 18:11:49 12/09/1912/10/2022 EBV ANTIB ABILIO PROFI LE ebv Ab vca, IgM <36.0 U/mL 0.0-35 .9 Negat mendez <36.0 Equiv ocal 36.0 - 43.9 Posit mendez >43.9 Not Available [facility] [address] [address], [place], [address] 12/10/2022 14:10:06 12/09/19 23 12/10/2022 EBV ANTIB ABILIO PROFI LE ebv Ab vca, IgG 235.0 U/mL 0.0-17 .9 abnormal Negat mendez <18.0 Equiv ocal 18.0 - 21.9 Posit mendez >21.9 Not Available [facility] [address] [address], [place], [address] 12/10/2022 14:10:06 12/09/19 23 12/10/2022 EBV ANTIB ABILIO PROFI LE ebv nuclear antigen Ab, IgG 510.0 U/mL 0.0-17 .9 abnormal Negat mendez <18.0 Equiv ocal 18.0 - 21.9 Posit mendez >21.9 Not Available [address], [place], [address] 12/10/2022 14:10:06 12/09/19 23 12/10/2022 EBV ANTIB ABILIO PROFI LE interpretati on: Commen t . EBV Inter preta tion Chart Courtney: Antib abilio Prese nt + Antib abilio Absen t - Inter preta tion VCA-I gM VCA-I gG EBNA- IgG No previ ous infec tion/ - - - Susce ptibl e Prima ry infec tion (new + + - or recen t) Past Infec tion +or- + + See comme nt below * + - - *Resu lts indic ate infec tion with EBV at some time howev er canno t predi ct the timin g of the infec tion since antib odies to EBNA usual ly devel op after prima ry infec tion or, alter nativ rickie, appro ximat rickie 5-10% of patie nts with EBV never devel op antib odies to EBNA. Perfo rmed at: RN - [facility] [place] [address], [place] [address] Lab Direc tor: Nae Mason MD, Phone : [phone] Not Available [facility] [address] [facility] [address], [place], [address] 12/10/2022 14:10:06 Result Notes None recorded. Problems Name Problem SNOMED Code Status Onset Date Resolution Date Notes Provider Name and Address Organization Details Recorded Time Migraine without aura 31960351 Active 2022 ORIANA GUTIERREZ MD [address] [place] [address], [phone], [facility] 16:04:51 Serum ferritin level below reference range 3717847436115 04 Active 2022 ORIANA GUTIERREZ MD [address] [place] [address], [phone], [facility] 3 21:56:05 Vitamin B12 deficiency (non anemic) 02270897 Active 2022 ORIANA GUTIERREZ MD [address] [place] [address], [address], [facility] 3 21:56:06 Problem Notes None recorded. Medical Equipment None Reported. Medications Name Sig Start Date Stop Date Status Note LastModified by Organization Details LastModified Time promethazin e-DM 6.25 mg-15 mg/5 mL oral syrup active Not Available Not Available Not Available prednisone 10 mg tablet active Not Available Not Available Not Available venlafaxine ER 75 mg capsule,ext ended release 24 hr TAKE 1 CAPSULE BY MOUTH EVERY DAY active Not Available Not Available No t Available trazodone 50 mg tablet PLEASE SEE ATTACHED FOR DETAILED DIRECTION S active Not Available Not Available No t Available azithromyci n 250 mg tablet active Not Available Not Available Not Available fluconazole 150 mg tablet TAKE 1 TABLET BY MOUTH ONCE active Not Available Not Available No t Available valacyclovi r 1 gram tablet TAKE 1 TABLET BY MOUTH EVERY 8 HOURS active Not Available Not Available No t Available Vitamin B-12 500 mcg tablet take one at bedtime 2022 active Not Available Not Available Not Avai lable metronidazo le 500 mg tablet TAKE 1 TABLET BY MOUTH 3 TIMES A DAY FOR 14 DAYS active Not Available Not Available No t Available sulfamethox azole 800 mg-trimetho prim 160 mg tablet TAKE 1 TABLET BY MOUTH EVERY 12 HOURS FOR 10 DAYS 12/08 completed Not Available Not Available Not Available butalbital- acetaminoph en-caffeine 50 mg-325 mg-40 mg tablet TAKE 1 TABLET BY MOUTH EVERY 6 HOURS NEEDED FOR HEADACHE. active Not Available Not Available No t Available pantoprazol e 20 mg tablet,thiago yed release TAKE 1 TABLET BY MOUTH EVERY DAY active Not Available Not Available No t Available meloxicam 7.5 mg tablet TAKE 1 TABLET BY MOUTH NEEDED FOR PAIN 12/08 completed Not Available Not Available Not Available zolmitripta n 2.5 mg tablet PLEASE SEE ATTACHED FOR DETAILED DIRECTION S 12/08 completed Not Available Not Available Not Available benzonatate 100 mg capsule TAKE 1 TO 2 CAPSULES BY MOUTH 3 TIMES A DAY NEEDED FOR COUGH active Not Available Not Available No t Available ferrous sulfate 325 mg (65 mg iron) tablet take one at bedtime 2022 active Not Available Not Available Not Avai lable propranolol ER 80 mg capsule,24 hr,extended release TAKE 1 CAPSULE BY MOUTH EVERY DAY FOR 90 DAYS active Not Available Not Available No t Available propranolol ER 120 mg capsule,24 hr,extended release take at dinnertim e 2022 active Not Available Not Available Not Avai lable cefuroxime axetil 500 mg tablet TAKE 1 TABLET BY MOUTH TWICE A DAY FOR 7 DAYS 12/08 completed Not Available Not Available Not Available methylpredn isolone 4 mg tablets in a dose pack TAKE 6 TABLETS ON DAY 1 DIRECTED ON PACKAGE AND DECREASE BY 1 TAB EACH DAY FOR A TOTAL OF 6 DAYS 12/08 completed Not Available Not Available Not Available albuterol sulfate HFA 90 mcg/actuati on aerosol inhaler active Not Available Not Available Not Available sumatriptan 20 mg/actuatio n nasal spray PLEASE SEE ATTACHED FOR DETAILED DIRECTION S 12/08 completed Not Available Not Available Not Available ondansetron 4 mg disintegrat ing tablet TAKE 1 TABLET BY MOUTH EVERY 8 HOURS NEEDED FOR NAUSEA active Not Available Not Available No t Available cefdinir 300 mg capsule TAKE 1 CAP(S) ORALLY TWICE DAILY FOR SEVEN DAYS active Not Available Not Available No t Available doxycycline hyclate 100 mg tablet TAKE 1 TABLET BY MOUTH TWICE A DAY 12/08 completed Not Available Not Available Not Available neomycin 3.5 mg/g-polymy denice B 10,000 unit/g-dexa meth 0.1 % eye oint APPLY 1/4 RIBBON TO RUL TWICE A DAY FOR 10 DAYS 12/08 completed Not Available Not Available Not Available Creon 12,000-38,0 00-60,000 unit capsule,del ayed release TAKE 4 CAPSULES BY MOUTH 3 TIMES A DAY FOR 30 DAYS ADMINISTE R WITH MEALS AND/OR SNACKS active Not Available Not Available No t Available Nurtec ODT 75 mg disintegrat ing tablet DISSOLVE 1 TABLET ON OR UNDER THE TONGUE ONCE A DAY NEEDED FOR MIGRAINE active Not Available Not Available No t Available Vitals None Recorded Social History None recorded. Functional Status None recorded. Mental Status None recorded. Family History Nothing Reported. Medical History No medical history recorded. Gynecological HistoryNo gynecological history recorded. Obstetrics History GPAL:G 0 P 0 0 0 0 Past Encounters Encounter ID Performer Location Encounter Start Date Encounter Closed Date Diagnosis/Indication Diagnosis SNOMED-CT Code Diagnosis ICD10 Code Diagnosis IMO Codes Diagnosis Note [id number] ORIANA GUTIERREZ MD [facility] [address] [place] [address] 12/08/2022 14:32:20 12/09/2022 16:06:19 Vitamin D deficiency 77081777 E55.9 Will eval for vitamin deficiency . Vitamin B1 2 deficiency (non anemic) 93624293 E53.8 Will eval for vitamin deficiency . Serum ferr itin level below reference range 5515537486 72247 R79.89 Will eval for vitamin deficiency . Migraine without aura 56 345205 G43.009 47yo F presenting as a new patient for migraines without aura.Altho ugh her migraines have changed in character and frequency since April, the imaging workup performed at [facility] is reassuring that red flag conditions can be ruled out. Pt also endorsed significan t family stressors in the past year; and, on review of systems she is experienci ng hot flashes and night sweats indicative . These added stressors along with likely transition ing into menopause can be the main drivers as to the change in migraine characteri stic and frequency. Migraine Abortive Tx:- Nurtec 75mg PRN Migraine PPx:- Increase Propranolo l to 120mg QD at dinner time- update Dr Gutierrez in one month on the portal as to the efficacy of this medication alteration in preventing future migraines- Blue Light glasses while working- Adequate hydration, diet, and sleep hygeine Labs:- Ferritin- Vit D- Vit B12- Jalil Peres Virus Antibodies - Lyme IgG + IgM antibody serum panel F/u appointmen t with Dr Gutierrez in 3-4 months Hosseni Larson [facility] MS4 Greater than 50% of this 45 min encounter was spent discussing migraine without aura and coordinati ng care. Lyme disease 62503421 A6 9.20 Will eval for for Lyme deficiency . Jalil-Ba rr virus disease 697041084 B27.00 Will eval for EBV. [id number] ORIANA GUTIERREZ MD [facility] [address] [place] [address] 03/23/2023 12:53:45 03/23/2023 14:41:40 Migraine without aura [id number] G43.009 47yo F presenting as a new patient for migraines without aura.Altho ugh her migraines have changed in character and frequency since April, the imaging workup performed at [facility] is reassuring that red flag conditions can be ruled out. Pt also endorsed significan t family stressors in the past year; and, on review of systems she is experienci ng hot flashes and night sweats indicative . These added stressors along with likely transition ing into menopause can be the main drivers as to the change in migraine characteri stic and frequency. Migraine Abortive Tx:- Nurtec 75mg PRN Migraine PPx:- Continue Propranolo l to 120mg QD at dinner time- Adequate hydration, diet, and sleep hygeine- Recheck labs to ensure optimized supplement ationF/u appointmen t with Dr Gutierrez in 6 months This visit was conducted using two-way, real-time telehealth video conference . The patient was in her home. Physician, Dr. Gutierrez was located at [facility]. Instructio ns were reviewed with the patient and verbal consent was obtained. I informed the patient that she can see me in person if needed. She is of moderate risk. Greater than 50% of this 32 min encounter was spent discussing migraine without aura and coordinati ng care. Vitamin B1 2 deficiency (non anemic) 60925041 E53.8 Will eval for vitamin deficiency . Serum ferr itin level below reference range 9228742457 45886 R79.89 Will eval for vitamin deficiency . Health Concerns Section Related Observation LastModified by Organization Detai ls LastModified Time None Recorded Concern Status LastModified by Organization Details LastModified Time None Recorded Advance Directives Directive None Recorded Payers Insurance Date Sequence Insurance Name Policy Number Policy Vera Covered Member ID Vera Member ID Guarantor Name 03/20/2023 1 [place] [employer] [place] Adriana Cook Ludwig [id number] Adriana Munroe Notes Date Note Type Note Provider Name and Address Organization Details Recorded Time 12/08/2022 text/html 47yo F PMHx notable for arthritis and pancreatic insufficiency presenting as a new pt for migraines. Adriana has has migraines since her 20's, but they recently changed in characteristic April 2022. Previously, she would experience N/V and photophobia in the prodromal phase approximately one day prior to experiencing a headache concentrated behind both eyes. These episodes would last 4 hours then subside, and would occur 1-2 times per week. They were alleviated by 1-4 ibuprofen tablets. In April 2022, she began experiencing these headaches daily for a week which then became constant, more painful, and presented with a new burning sensation in the posterior occipital region. She presented to [facility] and was admitted for 3 days. While there, they unsuccessfully trialed triptan medications, but found Nurtec 75mg PRN to be effective in abortive therapy. Pt reports that imaging performed at [facility] (including MRI and CT) came back unremarkable. Since then, the pt has had these new characteristic migraines 3-4 times per week that last 4 hours. She has not been sleeping well, endorsing 5-6 hours of sleep but lacking quality. She takes 2 CBD capsules nightly that haven't seemed to have an effect. Pt reports adequate diet and hydration. Notably, the pt has also experienced ~10 episodes of severe burning unilateral eye pain for which she saw an golf club repairer at [facility] a few months ago. She was diagnosed with eye migraines. ORIANA GUTIERREZ MD [address] [place] [address], [phone], [facility] 12/08/2022 21:48:35 03/23/2023 text/html 47yo F PMHx notable for arthritis and pancreatic insufficiency presenting as a new pt for migraines. BP and headaches have improved. She moved to a new job. She continues to have tight neck muscles. Menopause sx have increased. She is having marked hot flashes. She has had up to 8 in one day. She started an over the counter supplement to help with the hot flashes. Brain fog is improving with less stress. ORIANA GUTIERREZ MD [address] [place] [address], [phone], [facility] 03/23/2023 21:57:36 OBGyn Episode No OBEpisode recorded.
--- OUTSIDE RECORDS SUMMARY | 2025-05-07 10:09 | XMS_ITS | Encounter Summary ---
Author Organization [facility] Address [address] [place] [address] Phone Care Team Providers Care Industrial Engineering Director Name Role Phone Millie Chandler MD Primary Care Provider [phone] Ginny Pires PA-C Unavailable [phone] Parent, Gloria Jean MD Primary Care Provider [phone] ParentGloria MD Unavailable [phone] ParentGloria MD Unavailable [phone] Makeda Sullivan MD Unavailable Angela Fisher MD Primary Care Provider [phone] Encounter Details Date Type Department Care Team (Late st Contact Info) Description 11/29/2019 Procedure Pass [facility] CT Imaging, [place] [address] [place] [address] Social History Tobacco Use Types Packs/Day Years Used Date Smoking Tobacco: Never Smokeless Tobacco: Never Alcohol Use Standard Drinks/Week Comments Yes 0 (1 standard drink = 0.6 oz pur e alcohol) occasionaly Comments No Sex and Gender Information Value Date Recorded Sex Assigned at Female 02/17/2019 10:06 AM EDT Legal Sex Female 12:12 PM EDT Gender Identity Female 02/17/2019 10:06 AM EDT Sexual Orientation Straight 02/17/2019 10 :06 AM EDT documented as of this encounter Plan of Treatment Upcoming Encounters Date Type Department Care Team (Late st Contact Info) Description 02/07/2025 Procedure Pass [facility] [address] [place] [address] 11/06/2025 1:30 PM EDT Appointment [facility] [address] [place] [address] Ginny Pires PA-C [address] [place] [address] [email or web address] 02/08/2026 4:00 PM EDT Office Visit [facility] Primary Care [facility] [address] [place] [address] Ginny Pires PA-C [address] [place] [address] [email or web address] documented as of this encounter Visit Diagnoses Not on filedocumented in this encounter Additional Health Concerns Infection Onset Date Last Indicated Resolved Time CoV-Exposed Comment:Recent close contact documented in the Travel/Symptom Screening Form 07/01/2021 07/16/2021 1:[address] CoV-Risk 05/13/2020 05/21/2020 06/03/2020 1:23 AM EST CoV-Risk 04/09/2021 04/09/2021 04/19/2021 1:23 AM EDT CoV-Risk 07/01/2021 07/01/2021 07/11/2021 1:23 AM EST CoV-Risk Comment:Per Ambulatory Triage Form 08/05/2023 08/05/202308/16 1:22 AM EST CoV-Exposed Comment:Recent close contact documented in the COVID-19 Amb Triage Form 10/31/2023 11/03/2023 11/21/2023 1:21 AM E DT CoV-Risk Comment:Per Ambulatory Triage Form 11/03/2023 11/03/202311/13 1:21 AM EDT CoV-Risk 02/04/2025 02/04/2025 02/15/2025 1:21 AM EDT Assessment Noted Time PHQ-2 Depression Total Score: 0 01/12/20 19 1:08 PM EDT documented as of this encounter Care Teams Industrial Engineering Director Relationship Specialty Start Date End Date Millie Chandler MD [address] [facility] Primary Care - 4th [place] [address] [email or web address] PCP - General Internal Medicine 11/27/19 03/06/21 Ginny Pires PA-C [address] [place] [address] [email or web address] PCP - Resident PCP Internal Medicine 11/27/19 Gloria Mullen MD [address] [place] [address] [email or web address] PCP - General Internal Medicine 03/07/21 03/26/25 Angela Fisher MD [address] [place] [address] [email or web address] PCP - General Internal Medicine 03/27/25 Gloria Mullen MD [address] [place] [address] [email or web address] Partners Attributed Provider 06/06/22 11/05/23 Gloria Mlulen MD [address] [place] [address] [email or web address] Insurance Assigned Provider 03/06/23 04/03/23 Makeda Sullivan MD [address] [place] [email or web address] Insurance Assigned Provider 04/03/23 09/04/23 documented as of this encounter Additional Source Comments The information contained in this document represents components of the legal health record. It is not the complete legal health record[facility]
--- OUTSIDE RECORDS SUMMARY | 2025-05-07 10:09 | XMS_ITS | Encounter Summary ---
Author Organization [facility] Address [address] [place] [address] Phone Care Team Providers Care Boarding Machine Operator Name Role Phone Ginny Pires PA-C Unavailable Parent, Gloria Jean MD Primary Care Provider [phone] Parent, Gloria Jean MD Unavailable [phone] Parent, Gloria Jean MD Unavailable [phone] Makeda Sullivan MD Unavailable [phone] Angela Fisher MD Primary Care Provider Encounter Details Date Type Department Care Team (Late st Contact Info) Description 11/14/2021 Procedure Pass [facility] 20 [place] [address] Social History Tobacco Use Types Packs/Day Years [...] 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 Not on file No t on file documented as of this encounter Plan of Treatment Upcoming Encounters Date Type Department Care Team (Late st Contact Info) Description 02/07/2025 Procedure Pass [facility] [address] [place] [address] 11/06/2025 1:30 PM EDT Appointment [facility] [address] [place] [address] Ginny Pires PA-C 20 [place] [address] [email or web address] 02/08/2026 4:00 PM EDT Office Visit [facility] Primary Care [facility] [address] [place] [address] Ginny Piers PA-C 20 [place] [address] [email or web address] documented as of this encounter Visit [...] documented as of this encounter Care Teams Boarding Machine Operator Relationship Specialty Start Date End Date Ginny Pires PA-C 20 [place] [address] [email or web address] PCP - Resident PCP Internal Medicine 11/27/19 Gloria Mullen MD [address] [place] [address] [email or web address] PCP - General Internal Medicine 03/07/21 03/26/25 Angela Fisher MD [address] [address] [email or web address] PCP - General Internal Medicine 03/27/25 ParentGloria MD [address] [place] [address] [email or web address] Attributed Provider 06/06/22 11/05/23 ParentGloria MD [address] [place] [address] [email or web address] Insurance Assigned Provider 03/06/23 04/03/23 Makeda Sullivan MD [address] [place] [address] [email or web address] Insurance Assigned Provider 04/03/23 09/04/23 documented as of this encounter Additional Source Comments The information contained in this document represents components of the legal health record. It is not the complete legal health record.[facility]
--- OUTSIDE RECORDS SUMMARY | 2025-05-07 10:10 | XMS_ITS | Encounter Summary ---
Author Organization [facility] Address [address] [place] [address] Phone Care Team Providers Care Cogeneration Technician Name Role Phone Manpreet Dee MD Primary Care Provider Emiliana Liao Unavailable [phone] Millie Chandler MD Primary Care Provider Ginny Pires PA-C Unavailable Parent, Gloria Jean MD Primary Care Provider [phone] ParentGloria MD Unavailable ParentGloria MD Unavailable Makeda Sullivan MD Unavailable Angela Fisher MD Primary Care Provider Encounter Details Date Type Department Care Team (Late st Contact Info) Description 06/03/2019 Ancillary Orders [facility] Primary Care [facility] [address] [place] [address] Manpreet Dee MD 20 [facility] Primary Care - 4th [place] [address] [email or web address] Social History Tobacco Use Types Packs/Day Years [...] st Contact Info) Description 02/07/2025 Procedure Pass [facility] 20 [place] [address] 11/06/2025 1:30 PM EDT Appointment [facility] [address] [place] [address] Ginny Pires PA-C 20 [place] [address] [email or web address] 02/08/2026 4:00 PM EDT Office Visit [facility] Primary Care [facility] [address] [place] [address] Ginny Pires PA-C 20 [place] [address] [email or web address] documented as of this encounter Results * Mammogram Outside (No Interpretation) (06/03/2019 8:31 AM EST) Narrative JAKYH - 06/03/2019 8:31 AM EST This study is for PACS storage only and not for interpretation. us Manpreet Dee MD IMG OUTSIDE IMAGING W/OUT IN TERPRETATION Final Result [facility] documented in this encounter Visit Diagnoses Not on filedocumented [...] Time PHQ-2 Depression Total Score: 0 01/12/20 1:08 PM EDT documented as of this encounter Care Teams Cogeneration Technician Relationship Specialty Start Date End Date Manpreet Dee MD 20 [facility] Primary Care - [address] [place] [address] [email or web address] PCP - General Internal Medicine 01/11/19 11/26/19 Emiliana Liao PA [address] [place] [address] [email or web address] PCP - Resident PCP Internal Medicine 05/16/19 11/26/19 Millie Chandler MD 20 [facility] Primary Care - [address] [place] [address] [email or web address] PCP - General Internal Medicine 11/27/19 03/06/21 Ginny Pires PA-C 20 [place] [address] [email or web address] PCP - Resident PCP Internal Medicine 11/27/19 ParentGloria MD 20 [place] [address] [email or web address] PCP - General Internal Medicine 03/07/21 03/26/25 Angela Fisher MD [address] [place] [address] [email or web address] PCP - General Internal Medicine 03/27/25 Gloria Mullen MD [address] [place] [address] [email or web address] Partners Attributed Provider 06/06/22 11/05/23 Gloria Mullen MD [address] [place] [address] [email or web address] Insurance Assigned Provider 03/06/23 04/03/23 Makeda Sullivan MD [address] [place] [address] [email or web address] Insurance Assigned Provider 04/03/23 09/04/23 documented as of this encounter Additional Source Comments The information contained in this document represents components of the legal health record. It is not the complete legal health record.[facility]
--- OUTSIDE RECORDS SUMMARY | 2025-05-07 10:10 | XMS_ITS | Encounter Summary ---
Author Organization [facility] Address [address] [place] [address] Phone Care Team Providers Care Environmental Officer Name Role Phone Ginny Pires PA-C Unavailable Parent, Gloria Jean MD Primary Care Provider [phone] Parent, Gloria Jean MD Unavailable [phone] Parent, Gloria Jean MD Unavailable [phone] Makeda Sullivan MD Unavailable [phone] Angela Fisher MD Primary Care Provider [phone] Encounter Details Date Type Department Care Team (Late st Contact Info) Description 05/01/2022 Procedure Pass [facility] 20 [place] [address] Social History Tobacco Use Types Packs/Day Years [...] 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 [address] [place] [address] Ginny Pires PA-C 20 [place] [address] [email or web address] documented as of this encounter Visit [...] PM EST PHQ-2 Depression Total Score: 0 05/01/20 22 10:25 AM EDT documented as of this encounter Care Teams Environmental Officer Relationship Specialty Start Date End Date Ginny Pires PA-C 20 [place] [address] [email or web address] PCP - Resident PCP Internal Medicine 11/27/19 ParentGloria MD [address] [place] [address] [email or web address] PCP - General Internal Medicine 03/07/21 03/26/25 Angela Fisher MD [address] [place] [address] [email or web address] PCP - General Internal Medicine 03/27/25 Parent, Gloria Jean MD [address] [place] [address] [email or web address] Partners Attributed Provider 06/06/22 11/05/23 Parent, Gloria Jean MD [address] [place] [address] [email or web address] Insurance Assigned Provider 03/06/23 04/03/23 Makeda Sullivan MD [address] [place] [address] [email or web address] Insurance Assigned Provider 04/03/23 09/04/23 documented as of this encounter Additional Source Comments The information contained in this document represents components of the legal health record. It is not the complete legal health record.[facility]
--- OUTSIDE RECORDS SUMMARY | 2025-05-07 10:10 | XMS_ITS | Encounter Summary ---
Author Organization [facility] Address [address] [place] [address] Phone Care Team Providers Care Real Property Appraiser Name Role Phone Ginny Pires PA-C Unavailable [phone] Parent, Gloria Jean MD Primary Care Provider [phone] Parent, Gloria Jean MD Unavailable [phone] Parent, Gloria Jean MD Unavailable [phone] Makeda Sullivan MD Unavailable Angela Fisher MD Primary Care Provider [phone] Encounter Details Date Type Department Care Team (Late st Contact Info) Description 09/30/2021 Procedure Pass [facility] [place] [address] [place] [address] Social History Tobacco Use Types Packs/Day Years [...] 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 Not on file No t on file documented as of this encounter Plan of Treatment Upcoming Encounters Date Type Department Care Team (Late st Contact Info) Description 02/07/2025 Procedure Pass [facility] [address] [place] [address] 11/06/2025 1:30 PM EDT Appointment [facility] [address] [place] [address] Ginny Pires PA-C 20 [place] [address] [email or web address] 02/08/2026 4:00 PM EDT Office Visit [facility] Primary Care [facility] [address] [place] [address] Ginny Pires PA-C [address] [place] [address] [email or web address] documented as of this encounter Visit [...] documented as of this encounter Care Teams Real Property Appraiser Relationship Specialty Start Date End Date Ginny Pires PA-C [address] [place] [address] [email or web address] PCP - Resident PCP Internal Medicine 11/27/19 Gloria Mullen MD [address] [place] [address] [email or web address] PCP - General Internal Medicine 03/07/21 03/26/25 Angela Fisher MD [address] [place] [address] [email or web address] PCP - General Internal Medicine 03/27/25 ParentGloria MD [address] [place] [address] [email or web address] Partners Attributed Provider 06/06/22 11/05/23 ParentGloria MD [address] [place] [address] [email or web address] Insurance Assigned Provider 03/06/23 04/03/23 Makeda Sullivan MD [address] [place] [address] [email or web address] Insurance Assigned Provider 04/03/23 09/04/23 documented as of this encounter Additional Source Comments The information contained in this document represents components of the legal health record. It is not the complete legal health record.[facility]
--- OUTSIDE RECORDS SUMMARY | 2025-05-07 10:10 | XMS_ITS | Encounter Summary ---
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 Wish to be (Past 1 Month) No 024 1:03 PM EDT Mi Castaneda RN 2. Non-Specific Active Suici nicolette Thoughts (Past 1 Month) No 04/04/2024 1:03 PM EDT Mikaela Castaneda RN 6. Suicidal Behavior (Lifetime) No 4 1:03 PM EDT Mi Castaneda RN documented as of this encounter Plan of Treatment Upcoming Encounters Date Type Department Care Team (Late st Contact Info) Description 02/07/2025 Procedure Pass [facility] 20 [place] [address] 11/06/2025 1:30 PM EDT Appointment [facility] 20 [place] [address] Ginny Pires PA-C 20 [place] [address] [email or web address] 02/08/2026 4:00 PM EDT Office Visit [facility] Primary Care [facility] [address] [place] [address] Ginny Pires PA-C 20 [place] [address] [email or web address] documented as of this encounter Visit Diagnoses Not on filedocumented in this encounter Additional Health Concerns Infection Onset Date Last Indicated Resolved Time CoV-Risk 02/04/2025 02/04/2025 02/15/2025 1:21 AM EDT Assessment Noted Time PHQ-9 Depression Total Score: 8 06/04/20 4:11 PM EST PHQ-2 Depression Total Score: 0 02/07/20 9:24 AM EDT documented as of this encounter Care Teams Copy Lathe Tender Relationship Specialty Start Date End Date Ginny Pires PA-C 20 [place] [address] [email or web address] PCP - Resident PCP Internal Medicine 11/27/19 Gloria Mullen MD 20 [place] [address] [email or web address] PCP - General Internal Medicine 03/07/21 Angela Fisher MD 20 [place] [address] [email or web address] PCP - General Internal Medicine 03/27/25 documented as of this encounter Additional Source Comments The information contained in this document represents components of the legal health record. It is not the complete legal health record.[facility]
--- OUTSIDE RECORDS SUMMARY | 2025-05-07 10:10 | XMS_ITS | Encounter Summary ---
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 on file Not on raisa e documented as of this encounter Plan of Treatment Upcoming Encounters Date Type Department Care Team (Late st Contact Info) Description 02/07/2025 Procedure Pass [facility] [address] [place] [address] 11/06/2025 1:30 PM EDT Appointment [facility] [address] [place] [address] Ginny Pires PA-C 20 [place] [address] [email or web address] 02/08/2026 4:00 PM EDT Office Visit [facility] Primary Care [facility] [address] [place] [address] Ginny Pires PA-C 20 [place] [address] [email or web address] documented as of this encounter [...] PM EST PHQ-2 Depression Total Score: 0 09/22/19 24 9:40 AM EDT documented as of this encounter Care Teams Professional Bass Fisher Relationship Specialty Start Date End Date [place] [address] [email or web address] PCP - Resident PCP Internal Medicine 11/27/19 Gloria Mullen MD 20 [place] [address] [email or web address] PCP - General Internal Medicine 03/07/21 03/26/25 Angela Fisher MD 4 [place] [address] [email or web address] PCP - General Internal Medicine 03/27/25 Gloria Mullen MD [address] [place] [address] [email or web address] Partners Attributed Provider 06/06/22 11/05/23 documented as of this encounter Additional Source Comments The information contained in this document represents components of the legal health record. It is not the complete legal health record.[facility]
--- OUTSIDE RECORDS SUMMARY | 2025-05-07 10:10 | XMS_ITS | Encounter Summary ---
Author Organization [facility] Address [address] [place] [address] Phone Care Team Providers Care Search Engine Optimization Consultant Name Role Phone Millie Chandler MD Primary Care Provider Ginny Pires PA-C Unavailable [phone] Parent, Gloria Jean MD Primary Care Provider [phone] ParentGloria MD Unavailable [phone] Parent, Gloria Jean MD Unavailable [phone] Makeda Sullivan MD Unavailable [phone] Angela Fisher MD Primary Care Provider Reason for Visit * Reason Onset Date Comments COVID-19 Inquiry 02/12/2020 Encounter Details Date Type Department Care Team (Late st Contact Info) Description 02/12/2020 Telephone [facility] Emergency Triage Log In [address] [place] [address] Faustina Hardy, RN [address] [place] [address] [email or web address] COVID-19 Inquiry Social History Tobacco Use Types Packs/Day Years [...] st Contact Info) Description 02/07/2025 Procedure Pass [facility] [address] [place] [address] 11/06/2025 1:30 PM EDT Appointment [facility] [address] [place] [address] Ginny Pires PA-C 20 [place] [address] [email or web address] 02/08/2026 4:00 PM EDT Office Visit [facility] Primary Care [facility] [address] [place] [address] Ginny Pires PA-C 20 [place] [address] [email or web address] documented as of this encounter [...] documented as of this encounter Care Teams Search Engine Optimization Consultant Relationship Specialty Start Date End Date Millie Chandler MD 20 [facility] Primary Care - 4th [place] [address] [email or web address] PCP - General Internal Medicine 11/27/19 03/06/21 Ginny Pires PA-C 20 [place] [address] [email or web address] PCP - Resident PCP Internal Medicine 11/27/19 Gloria Mullen MD [address] [place] [address] [email or web address] PCP - General Internal Medicine 03/07/21 03/26/25 Angela Fisher MD [address] [place] [address] [email or web address] PCP - General Internal Medicine 03/27/25 Gloria Mullen MD [address] [place] [address] [email or web address] Partners Attributed Provider 06/06/22 11/05/23 Gloria Mullen MD [address] [place] [address] [email or web address] Insurance Assigned Provider 03/06/23 04/03/23 Makeda Sullivan MD [address] [place] [address] [email or web address] Insurance Assigned Provider 04/03/23 09/04/23 documented as of this encounter Additional Source Comments The information contained in this document represents components of the legal health record. It is not the complete legal health record.[facility]
--- OUTSIDE RECORDS SUMMARY | 2025-05-07 10:11 | XMS_ITS | Clinical Summary ---
Author Organization [facility] Address [address] [place] [address] Phone Care Team Providers Care Breaster Name Role Phone Unavailable Primary Care Provider Unavailabl e Social History Tobacco Use Types Packs/Day Years Used Date Smoking Tobacco: Never Assessed Comments Unknown Sex and Gender Information Value Date Recorded Sex Assigned at Not on file Legal Sex Female 5:28 AM EDT Gender Identity Not on file Sexual Orientation Not on file Last Filed Vital Signs Vital Sign Reading Time Taken Comments Blood Pressure 123/73 12/31/2024 2:36 PM EDT Pulse 67 12/31/2024 2:36 PM EDT Temperature 36.6 C (97.9 F) 12/31/2024 12:17 PM EDT Respiratory Rate 16 12/31/2024 2:36 PM EDT Oxygen Saturation 100% 12/31/2024 2:36 PM EDT Inhaled Oxygen Concentration - - Weight 76.2 kg (168 lb) 12/31/2024 12:17 PM EDT Height 177.8 cm (5' 10 ) 12/31/2024 12:17 PM EDT Body Mass Index 24.11 12/31/2024 12:17 PM EDT Plan of Treatment Health Maintenance Due Date Last Done Comments Diabetes Screening 1974 HIV Lifetime Screening 1974 Hepatitis B Lifetime Screening 1974 Hepatitis C Antibody Lifetim e Screening 1974 LIPID PANEL 1974 THRIVE SCREENING 1974 Oral Health Screen 1974 HEIP Disability Screen 1979 BEHAVIORAL HEALTH SCREEN 1986 Psych Substance Use Screen 1986 DTAP/TDAP VACCINE (1 - Tdap) 1993 Cervical Cancer Screening 1995 Colposcopy 1995 LEEP 1995 PAP SMEAR 1995 Pap + HPV 1995 MAMMOGRAM 2014 Colonoscopy FOBT- Positive 2019 Colonoscopy 2019 Colorectal Cancer Screening 2019 FOBT 2019 Sigmoidoscopy 2019 Pneumonia Vaccine 50+ (1 of 1 - PCV) 2024 Zoster Vaccine (1 of 2) 2024 COVID-19 Vaccine ( - 2024-2 6 season) 2025 INFLUENZA VACCINE (#1) 2025 HPV VACCINES Aged Out No longer eligi ble based on patient's age to complete this topic IPV VACCINES Aged Out No longer eligi ble based on patient's age to complete this topic MENINGOCOCCAL B Aged Out No longer el igible based on patient's age to complete this topic ROTAVIRUS VACCINES Aged Out No longer eligible based on patient's age to complete this topic
--- OUTSIDE RECORDS SUMMARY | 2025-05-07 10:11 | XMS_ITS | Encounter Summary ---
Author Organization [facility] Address [address] [place] [address] Phone Care Team Providers Care Supervisor Garage Name Role Phone Ginny Pires PA-C Unavailable [phone] Parent, Gloria Jean MD Primary Care Provider [phone] Parent, Gloria Jean MD Unavailable [phone] Parent, Gloria Jean MD Unavailable [phone] Makeda Sullivan MD Unavailable Angela Fisher MD Primary Care Provider [phone] Encounter Details Date Type Department Care Team (Late st Contact Info) Description 05/05/2022 Procedure [facility] Emergency Department, [facility] [address] [place] [address] Social History Tobacco Use Types Packs/Day Years [...] st Contact Info) Description 02/07/2025 Procedure Pass [facility] [address] [place] [address] 11/06/2025 1:30 PM EDT Appointment [facility] [address] [place] [address] Ginny Pires PA-C [address] [place] [address] [email or web address] 02/08/2026 4:00 PM EDT Office Visit [facility] Primary Care [facility] [address] [place] [address] Ginny Pires PA-C [address] [place] [address] [email or web address] documented as of this encounter [...] EST PHQ-2 Depression Total Score: 0 05/01/20 10:25 AM EDT documented as of this encounter Care Teams Supervisor Garage Relationship Specialty Start Date End Date Ginny Pires PA-C [address] [place] [address] [email or web address] PCP - Resident PCP Internal Medicine 11/27/19 Gloria Mullen MD [address] [place] [id number] [email or web address] PCP - General Internal Medicine 03/07/21 03/26/25 Angela Fisher MD [address] [address] [email or web address] PCP - General Internal Medicine 03/27/25 ParentGloria MD [address] [place] [id number] [email or web address] Attributed Provider 06/06/22 11/05/23 ParentGloria MD [address] [place] [id number] [email or web address] Insurance Assigned Provider 03/06/23 04/03/23 Makeda Sullivan MD [address] [place] [id number] [email or web address] Insurance Assigned Provider 04/03/23 09/04/23 documented as of this encounter Additional Source Comments The information contained in this document represents components of the legal health record. It is not the complete legal health record.[facility]
--- OUTSIDE RECORDS SUMMARY | 2025-05-07 10:11 | XMS_ITS | Encounter Summary ---
Author Organization [facility] Address [address] [place] [address] Phone Care Team Providers Care Pigment Pumper Name Role Phone Ginny Pires PA-C Unavailable [phone] Gloria Mullen MD Primary Care Provider [phone] Angela Fisher MD Primary Care Provider [phone] Encounter Details Date Type Department Care Team (Late st Contact Info) Description 04/05/2024 Telephone [facility] on the [address] [address] [place] [address] [place] [address] [email or web address] Social History Tobacco Use Types Packs/Day Years [...] ecorded Are you denied basic needs [facility] as food, clothing, or medical care? No [...] Job Start Date Job End Date [employer] Not on file Not on file Not on file documented as of this encounter Plan of Treatment Upcoming Encounters Date Type Department Care Team (Late st Contact Info) Description 02/07/2025 Procedure Pass [facility] [address] [place] [address] 11/06/2025 1:30 PM EDT Appointment [facility] [address] [place] [address] Ginny Pires PA-C [address] [place] [address] [email or web address] 02/08/2026 4:00 PM EDT Office Visit [facility] Primary Care [facility] [address] [place] [address] Ginny Pires PA-C [address] [place] [address] [email or web address] documented as of this encounter Visit Diagnoses Not on filedocumented in this encounter Additional Health Concerns Infection Onset Date Last Indicated Resolved Time CoV-Risk 02/04/2025 02/04/2025 02/15/2025 1:21 AM EDT Assessment Noted Time PHQ-9 Depression Total Score: 8 06/04/20 4:11 PM EST PHQ-2 Depression Total Score: 0 02/07/20 9:24 AM EDT documented as of this encounter Care Teams Pigment Pumper Relationship Specialty Start Date End Date Ginny Pires PA-C [address] [place] [address] [email or web address] PCP - Resident PCP Internal Medicine 11/27/19 Gloria Mullen MD [address] [place] [address] [email or web address] PCP - General Internal Medicine 03/07/21 [place] [address] [email or web address] PCP - General Internal Medicine 03/27/25 documented as of this encounter Additional Source Comments The information contained in this document represents components of the legal health record. It is not the complete legal health record.[facility]
== END 2025-05-07 12:48 | disposition home or self-care (01) ==
LOC: HO.HGI 09:18
PROVIDERS: Visit Provider Internal Medicine Gastroenterology
DX: R14.0 Abdominal distension (gaseous) (principal)
CPT/HCPCS: 99213